=== PATIENT | female | born 1970 | race Caucasian/White ===

== ENCOUNTER 2016-10-07 19:45 | Emergency (ER) | payer MEDICAID ==
[2016-10-07 19:57] VITALS: BP 124/80
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
== END 2016-10-07 20:43 | disposition home or self-care (01) ==
LOC: LL.ED 19:45
DX: S62.660A Nondisplaced fracture of distal phalanx of right index finger, initial encounter for closed fracture (principal); J45.909 Unspecified asthma, uncomplicated; M19.90 Unspecified osteoarthritis, unspecified site; F41.9 Anxiety disorder, unspecified; F32.9 Major depressive disorder, single episode, unspecified; E66.9 Obesity, unspecified; Z90.89 Acquired absence of other organs; Z98.51 Tubal ligation status; Z79.82 Long term (current) use of aspirin; Z79.899 Other long term (current) drug therapy; W23.1XXA Caught, crushed, jammed, or pinched between stationary objects, initial encounter; Y92.59 Other trade areas as the place of occurrence of the external cause
CPT/HCPCS: 11740; 29130; 73140-F6; 99283

== ENCOUNTER 2018-07-09 14:09 | Observation (INO) | payer MEDICAID, OTHER ==
[2018-07-09] MEDS ORDERED: Metoprolol Tartrate 5 MG/5 ML SDV IVPUSH ONE (14:13)
[2018-07-09] MEDS ORDERED: Famotidine 20 MG/2 ML SDV IVPUSH ONE (14:13)
[2018-07-09] MEDS ORDERED: Ticagrelor 90 MG Tab PO ONE (14:13)
[2018-07-09] MEDS ORDERED: Aspirin 81 MG Tab.Chew CHEW ONE (14:13)
--- NOTE | 2018-07-09 14:13 | EDM.PDOC ---
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 Prilosec taken earlier today. Consider GI workup including repeat EGD, etc. once her cardiac status has been clarified. Attempt to obtain H. pylori stool antigen samples. (3) Hypertension SNOMED Code(s): 28387649 Code(s): I10 - ESSENTIAL (PRIMARY) HYPERTENSION Status: Chronic Priority : High Current Visit: Yes Onset Date: 10/31/15 Annotation/Comment:: Blood pressures and elevated on arrival with low-dose IV Lopressor given. Continue to observe closely during this hospitalization. Qualifiers: Hypertension type: essential hypertension Qualified Code(s): I10 - Essential (primary) hypertension (4) Mixed anxiety depressive disorder SNOMED Code(s): 687016808 Code(s): F41.8 - OTHER SPECIFIED ANXIETY DISORDERS Status: Chronic Priority: High Current Visit: Yes Annotation/Comment:: Stable by history (5) Hypothyroidism SNOMED Code(s): 12327489 Code(s): E03.9 - HYPOTHYROIDISM, UNSPECIFIED Status: Chronic Priority: Medium Current Visit: Yes Onset Date: 10/31/15 Annotation/Comment:: Currently under therapy. TSH normal today. Qualifiers: Hypothyroidism type: acquired Qualified Code(s): E03.9 - Hypothyroidism, unspecified (6) Asthma SNOMED Code(s): 405819139 Code(s): J45.909 - UNSPECIFIED ASTHMA, UNCOMPLICATED Status: Chronic Priority: Medium Current Visit: Yes Annotation/Comment:: Stable by history with no recent fever however recent nonspecific nonproductive cough as above. Observe for now. Consider PFTs depending on her clinical course. Qualifiers: Asthma severity: unspecified severity Asthma persistence: intermittent Asthma complication type: uncomplicated Qualified Code(s): J45.20 - Mild intermittent asthma, uncomplicated (7) Dyslipidemia SNOMED Code(s): 447797810 Code(s): E78.5 - HYPERLIPIDEMIA, UNSPECIFIED Status: Chronic Priority: Medium Current Visit: Yes Onset Date: 11/01/15 Annotation/Comment:: Known dyslipidemia. Lipid panel and glycosylated hemoglobin in the a.m. Weight loss in moderation advisable. (8) Anemia SNOMED Code(s): 848993327 Code(s): D64.9 - ANEMIA, UNSPECIFIED Status: Chronic Priority: Medium Current Visit: Yes Onset Date: 11/01/15 Annotation/Comment:: No anemia today with some microcytosis. Further GI workup on an outpatient basis as above. Further iron studies, etc. in the a.m. Qualifiers: Anemia type: unspecified type Qualified Code(s): D64.9 - Anemia, unspecified (9) Osteoarthritis SNOMED Code(s): 749518824 Code(s): M19.90 - UNSPECIFIED OSTEOARTHRITIS, UNSPECIFIED SITE Status: Chronic Priority: Medium Current Visit: Yes Annotation/Comment:: Stable by history Qualifiers: Osteoarthritis location: multiple joints Osteoarthritis type: primary Qualified Code(s): M15.0 - Primary generalized (osteo)arthritis - Problem List Review Problem List Initiated/Reviewed/Updated: Yes - My Orders Last 24 Hours: My Active Orders 07/09/18 14:13 Cardiac Monitoring [RC] . DIRECTED EKG Documentation Completion [RC] ASDIRECTED Oxygen Therapy, ED [RC] PRN Peripheral IV Care [RC] . DIRECTED Pulse Oximetry [RC] CONTINUOUS Up With Assistance [RC] PFP Vital Signs [RC] PFP Chest 1V Frontal [CR] Stat Sodium Chloride 0.9% [Saline Flush] 10 ml FLUSH ASDIRECTED PRN Obtain Past Medical Record [OM.PC] Urgent Peripheral IV Insertion Adult [OM.PC] Stat Resuscitation Status Stat 07/09/18 14:17 Nitroglycerin [Nitrostat] 0.4 mg SL ONETIME STA 07/09/18 Breakfast Nothing per Oral Now Diet [DIET] - Assessment/Plan Admission H&P: Please use this note as an admission H&P Last 24 Hours: My Active Orders 07/09/18 14:13 Cardiac Monitoring [RC] . DIRECTED EKG Documentation Completion [RC] ASDIRECTED Oxygen Therapy, ED [RC] PRN Peripheral IV Care [RC] . DIRECTED Pulse Oximetry [RC] CONTINUOUS Up With Assistance [RC] PFP Vital Signs [RC] PFP Chest 1V Frontal [CR] Stat Sodium Chloride 0.9% [Saline Flush] 10 ml FLUSH ASDIRECTED PRN Obtain Past Medical Record [OM.PC] Urgent Peripheral IV Insertion Adult [OM.PC] Stat Resuscitation Status Stat 07/09/18 14:17 Nitroglycerin [Nitrostat] 0.4 mg SL ONETIME STA 07/09/18 Breakfast Nothing per Oral Now Diet [DIET] Assessment:: As above Plan: As above. Extensive precautions were given to the patient, who is in agreement with the treatment plan. The patient's condition is stable enough for observation status and general supervision.
[2018-07-09] MEDS ORDERED: Nitroglycerin 0.4 MG Tab.SL SL STA (14:17)
[2018-07-09] MEDS: Sodium Chloride 0.9% 10 ML Syringe FLUSH PRN ×3 (14:29→22:31)
[2018-07-09] MEDS ORDERED: Doxepin 25 MG Cap PO PRN (16:29)
[2018-07-09] MEDS ORDERED: GI Cocktail Oral Solution 30 ML PO ONE (16:51)
[2018-07-09] MEDS ORDERED: Sodium Chloride 0.9% 10 ML Syringe FLUSH PRN (16:53)
[2018-07-09] MEDS ORDERED: Venlafaxine 75 MG Cap.ER PO SCH (20:00)
[2018-07-09] MEDS ORDERED: Diazepam 5 MG Tab PO SCH (20:00)
[2018-07-09] MEDS ORDERED: buPROPion 150 MG Tab.ER PO SCH (20:00)
[2018-07-09] MEDS ORDERED: NALTREXONE 50 MG PO SCH (20:00)
[2018-07-09] MEDS: cefTRIAXone 1 GM in Sodium Chloride 0.9% 100 ML IV SCH (21:45)
[2018-07-10] MEDS: Acetaminophen 325 MG Tab PO PRN ×2 (00:55→08:08)
[2018-07-10 07:29] VITALS: BP 138/81
[2018-07-10] MEDS ORDERED: Levothyroxine 50 MCG Tab PO SCH (07:30)
[2018-07-10 07:43] LABS: HEMOGLOBIN A1C 6.4 % (4.3-5.7)
[2018-07-10] MEDS ORDERED: BREXPIPRAZOLE 0.5 MG PO SCH (08:00)
[2018-07-10] MEDS ORDERED: Venlafaxine 75 MG Cap.ER PO SCH (08:00)
[2018-07-10] MEDS ORDERED: Aspirin 81 MG Tab.Chew PO SCH (08:00)
[2018-07-10] MEDS: cefTRIAXone 1 GM in Sodium Chloride 0.9% 100 ML IV SCH (08:00)
[2018-07-10] MEDS: Sodium Chloride 0.9% 10 ML Syringe FLUSH PRN (08:01)
--- NOTE | 2018-07-10 10:15 | PCM.DCSUM1 ---
Discharge Summary - Hospital Course HPI Initial Comments: See emergency room note/admission H&P Brief History: See emergency room note/admission H&P Diagnosis: Stroke: No Modified Callahan Scale: No Symptoms at All Modified Callahan Scale Score: 0 - Discharge Data Discharge Date: 07/10/18 Discharge Disposition: Home, Self-Care 01 Condition: Good - Discharge Diagnosis/Problem(s) (1) Chest pain SNOMED Code(s): 73436124 ICD Code: R07.9 - CHEST PAIN, UNSPECIFIED Status: Acute Priority: High Current Visit: Yes Onset Date: 07/07/18 Problem Details: Negative workup for acute MS with patient still having some nonspecific chest wall pressure type discomfort. Various therapeutic options were discussed with the patient with Cardiolite stress test with me in this facility next week. Results are to be provided to her regular provider, Kerrie Goodman PA-C, at [facility] in [place]. Activity restrictions, etc. discussed. She apparently does not need a work excuse. Chest pain protocol initiated in the emergency room. Further cardiology consultation depending on her clinical course and results of her Cardiolite stress test. Qualifiers: Chest pain type: unspecified Qualified Code(s): R07.9 - Chest pain, unspecified (2) Peptic reflux disease SNOMED Code(s): 800126058 ICD Code: K21.9 - GASTRO-ESOPHAGEAL REFLUX DISEASE WITHOUT ESOPHAGITIS Status: Chronic Priority: Medium Current Visit: Yes Problem Details: High- dose IV Pepcid given in the emergency room as GI prophylaxis. Her heartburn has been under moderate control during the last week as per emergency room note with additional specimens for Hemoccult 3 and for H. pylori antigen to be collected on an outpatient basis. No BM during this hospitalization. Her Prilosec is already being taken at 40 mg by mouth daily consideration of additional Pepcid and/or Tums depending on her clinical course. Consider GI workup, including repeat EGD, etc. once her cardiac status has been clarified. (3) Hypertension SNOMED Code(s): 07603960 ICD Code: I10 - ESSENTIAL (PRIMARY) HYPERTENSION Status: Chronic Priority : High Current Visit: Yes Onset Date: 10/31/15 Problem Details: Blood pressures somewhat elevated on arrival with low-dose IV Lopressor given. Continue to observe closely by her regular provider with continuation of beta sawyer therapy for now. Note that patient failed to mention this therapy on admission. Qualifiers: Hypertension type: essential hypertension Qualified Code(s): I10 - Essential (primary) hypertension (4) Mixed anxiety depressive disorder SNOMED Code(s): 981726858 ICD Code: F41.8 - OTHER SPECIFIED ANXIETY DISORDERS Status: Chronic Priority: High Current Visit: Yes Problem Details: Stable by history with multiple current medications. Mildly suboptimal control based on clinical exam during this hospitalization. Continue to observe closely by her regular provider. (5) Hypothyroidism SNOMED Code(s): 38953659 ICD Code: E03.9 - HYPOTHYROIDISM, UNSPECIFIED Status: Chronic Priority: Medium Current Visit: Yes Onset Date: 10/31/15 Problem Details: Currently under therapy. TSH normal on admission. Qualifiers: Hypothyroidism type: acquired Qualified Code(s): E03.9 - Hypothyroidism, unspecified (6) Asthma SNOMED Code(s): 115875371 ICD Code: J45.909 - UNSPECIFIED ASTHMA, UNCOMPLICATED Status: Chronic Priority: Medium Current Visit: Yes Problem Details: Stable by history with no recent fever however recent nonspecific nonproductive cough as above. Observe for now. Consider PFTs depending on her clinical course. Qualifiers: Asthma severity: unspecified severity Asthma persistence: intermittent Asthma complication type: uncomplicated Qualified Code(s): J45.20 - Mild intermittent asthma, uncomplicated (7) Dyslipidemia SNOMED Code(s): 312820807 ICD Code: E78.5 - HYPERLIPIDEMIA, UNSPECIFIED Status: Chronic Priority: Medium Current Visit: Yes Onset Date: 11/01/15 Problem Details: Known dyslipidemia. Lipid panel and glycosylated hemoglobin conducted this morning with persistent dyslipidemia and mildly elevated glycosylated hemoglobin as below. No true diabetes. Weight loss in moderation advisable with dietary information provided at discharge. Consider statin therapy depending on her clinical course, weight loss success, etc. with repeat lipid panel and glycosylated globin recommended in 3 months. (8) Anemia SNOMED Code(s): 984990060 ICD Code: D64.9 - ANEMIA, UNSPECIFIED Status: Chronic Priority: Medium Current Visit: Yes Onset Date: 11/01/15 Problem Details: Progressive anemia during this hospitalization as above. Possible rehydration effect.with some microcytosis. Note newly diagnosed iron deficiency this morning with initiation of iron sulfate therapy and repeat iron studies in one month. Vitamin B 12 and folic acid levels were normal. Further GI workup on an outpatient basis as above. Qualifiers: Anemia type: iron deficiency Iron deficiency anemia type: unspecified iron deficiency Qualified Code(s): D50.9 - Iron deficiency anemia, unspecified (9) Osteoarthritis SNOMED Code(s): 210612936 ICD Code: M19.90 - UNSPECIFIED OSTEOARTHRITIS, UNSPECIFIED SITE Status: Chronic Priority: Medium Current Visit: Yes Problem Details: Stable by history Qualifiers: Osteoarthritis location: multiple joints Osteoarthritis type: primary Qualified Code(s): M15.0 - Primary generalized (osteo)arthritis (10) Hypocalcemia SNOMED Code(s): 7680325 ICD Code: E83.51 - HYPOCALCEMIA Status: Acute Priority: Medium Current Visit: Yes Onset Date: 07/10/18 Problem Details: Observe for now. Calcium level normal on admission. Consider additional OTC Tums depending on her clinical course. (11) Hypoalbuminemia SNOMED Code(s): 499679704 ICD Code: E88.09 - OTH DISORDERS OF PLASMA-PROTEIN METABOLISM, NEC Status: Acute Priority: Medium Current Visit: Yes Onset Date: 07/10/18 Problem Details: Normal on admission. Consider high-protein Glucerna supplements depending on her clinical course. (12) UTI (urinary tract infection) SNOMED Code(s): 83340571 ICD Code: N39.0 - URINARY TRACT INFECTION, SITE NOT SPECIFIED Status: Acute Priority: High Current Visit: Yes Onset Date: 07/09/18 Problem Details: IV Rocephin therapy started yesterday with patient to be discharged with Bactrim DS, which should also be beneficial for her nonspecific lymphadenopathy. Close follow-up by regular provider as per discharge instructions. Qualifiers: Urinary tract infection type: acute cystitis Hematuria presence: without hematuria Qualified Code(s): N30.00 - Acute cystitis without hematuria - Patient Summary/Data Operative Procedure(s) Performed: None Complications: None Consults: None Labs Pending at D/C: Urine culture and sensitivity Recommended Follow-up Testing/Procedures: As per discharge instructions Planned Operative Procedure(s) after DC: As per discharge instructions Hospital Course: The patient was placed in observation status on telemetry with negative workup for acute MS as above. Persistent nonspecific left-sided lymph node discomfort without true lymphadenopathy by clinical exam. In addition, nonspecific chest wall pain treated with Tylenol during this hospitalization. No true anginal complaints, etc. Cardiac workup, etc. as above. In addition, note some mild progressive anemia during the hospitalization with possible future workup as above. - Patient Instructions Diet: Heart Healthy Diet Activity: No Strenuous Activities (50% maximum exercise restriction until otherwise directed by regular provider) Driving: May Drive Today Showering/Bathing: May Shower Notify Provider of: Fever, Increased Pain, Nausea and/or Vomiting Other/Special Instructions: 1. Follow-up with your regular provider in 2 weeks for reevaluation and recommended repeat CBC, comprehensive metabolic panel, UA, and urine for culture and sensitivity. 2. Discuss Cardiolite test results at that time with further cardiology workup/referral and/or additional workup for your anemia including possible EGD, colonoscopy, etc. as discussed. 3. Cardiolite stress test to be conducted with me in this facility on 07/17 with this hospital to inform you at a later time next week with specific instructions , etc. 4. Recommend repeat CBC, TIBC panel, and ferritin level in one month. 5. Weight loss in moderation as discussed with dietary information provided to you by discharge. 6. Recommend repeat glycosylated hemoglobin and fasting lipid panel in 3 months. 7. Stool specimens for Hemoccults 3 and H. pylori stool antigen to be provided to this facility RENUKA as discussed. 8. Immediately after this visit verify that your cellular telephone's voicemail has been activated and is empty. Also verify that your home telephone's answering machine is operating properly and has space to receive messages. Note that it is sometimes necessary for us to be able to contact you at a later date to discuss your medical care. 9. Please remember that we are ALWAYS here for you and want to answer any questions you may have. Feel free to call the hospital any time and we call you back RENUKA. 10. Further workup of your left- sided lymph node pain at follow-up depending on her symptoms at that time - Discharge Plan *PRESCRIPTION DRUG MONITORING PROGRAM REVIEWED*: Not Applicable *COPY OF PRESCRIPTION DRUG MONITORING REPORT IN PATIENT NARCISO: Not Applicable Prescriptions/Med Rec: Ferrous Sulfate 325 mg PO QPM #30 tablet Sulfamethoxazole/Trimethoprim [Bactrim Ds Tablet] 1 each PO BIDMEALS #20 tablet Home Medications: Home Meds Albuterol Sulfate [Proair Hfa] 2 puff INH Q4HR PRN 10/31/15 [History] Doxepin [SINEquan] 75 mg PO BEDTIME PRN 10/31/15 [History] Fluticasone Propionate [Flonase] 2 spray INH DAILY 10/31/15 [History] Fluticasone/Vilanterol [Breo Ellipta 100-25 MCG Inhalation Kit] 1 puff INH DAILY 10/31/15 [History] Omeprazole 40 mg PO DAILY 10/31/15 [History] Venlafaxine [Effexor XR] 225 mg PO DAILY 10/31/15 [History] Acetaminophen [Tylenol] 650 mg PO Q4H PRN #100 tablet 11/01/15 [Rx] Aspirin 81 mg PO BRK #100 tab.chew 11/01/15 [Rx] Levothyroxine [Synthroid] 50 mcg PO ACBREAKFAST #60 tablet 11/01/15 [Rx] Naltrexone 50 mg PO BEDTIME 10/07/16 [History] buPROPion [Wellbutrin XL] 150 mg PO BEDTIME 10/07/16 [History] Brexpiprazole [Rexulti] 0.5 mg PO DAILY 07/09/18 [History] Diazepam [Valium] 5 mg PO BEDTIME 07/09/18 [History] Acetaminophen [Tylenol] 650 mg PO Q4H PRN tablet 07/10/18 [Rx] Ferrous Sulfate 325 mg PO QPM #30 tablet 07/10/18 [Rx] Metoprolol Tartrate 25 mg PO BID 07/10/18 [History] Sulfamethoxazole/Trimethoprim [Bactrim Ds Tablet] 1 each PO BIDMEALS #20 tablet 07/10/18 [Rx] Oxygen Therapy Mode: Room Air Patient Handouts: Fat and Cholesterol Restricted Eating Plan, Ceftriaxone injection, Heart-Healthy Eating Plan, [id number], Urinary Tract Infection, Adult, [id number], Nonspecific Chest Pain, [id number] Forms: ED Department Discharge Referrals: Kerrie Bourgeois PA-C [Primary Care Provider] - - Discharge Summary/Plan Comment DC Time >30 min.: Yes Discharge Summary/Plan Comment: As above. Extensive precautions were given to the patient, who is in agreement with the treatment plan. See Patient Instructions for further treatment and plan. - General Info Date of Service: 07/10/18 Admission Dx/Problem (Free Text: Chest pain Functional Status: Reports: Pain Controlled, Tolerating Diet, Ambulating, Urinating. Denies: New Symptoms, Incentive Spirometry Numeric/FACES Score: 4 (Nonspecific ascites lymphadenopathy and chest wall pain as above) - Review of Systems General: Reports: No Symptoms. Denies: Fever, Weakness, Fatigue, Malaise, Chills, Night Sweats, Appetite (Good) HEENT: Denies: Ear Pain, Eye Pain, Headaches, Post Nasal Drip, Sinus Congestion , Sore Throat, Rhinitis, Visual Changes Pulmonary: Reports: No Symptoms. Denies: Shortness of Breath, Pleuritic Chest Pain, Cough, Sputum, Wheezing Cardiovascular: Reports: Chest Pain (Nonspecific chest wall), Edema (Stable dependent). Denies: Palpitations, Dyspnea on Exertion, Lightheadedness Gastrointestinal: Reports: No Symptoms, Other (No bowel movement during this hospitalization). Denies: Abdominal Pain, Constipation, Decreased Appetite, Diarrhea, Difficulty Swallowing, Flatus, Hematochezia, Melena, Nausea, Vomiting Genitourinary: Reports: No Symptoms, Other (Note positive UA). Denies: Dysuria , Frequency, Burning, Pain, Urgency, Incontinence, Hematuria, Retention, Flank Pain Musculoskeletal: Reports: No Symptoms. Denies: Neck Pain, Shoulder Pain, Arm Pain, Back Pain, Leg Pain, Joint Swelling Skin: Reports: No Symptoms. Denies: Diaphoresis, Bruising Neurological: Reports: No Symptoms. Denies: Confusion, Dizziness, Numbness, Paresthesia, Tingling, Weakness Psychiatric: Reports: Depression, Anxiety. Denies: Agitation, Hallucinations, Suicidal Ideation, Homicidal Ideation - Patient Data Vitals - Most Recent: Last Vital Signs Temp 36.2 C 07/10/18 07:28 Pulse 72 07/10/18 07:28 Resp 16 07/10/18 07:28 BP 138/81 07/10/18 07:28 Pulse Ox 95 07/10/18 07:28 Vital Signs - 24 hr 07/09/18 07/09/18 07/09/18 14:12 14:24 14:25 Temperature [ 36.9 C Temporal] Pulse, 100 Peripheral Pulse, 99 Peripheral [ Pulse Oximetry] Respiratory 23 H Rate Blood Pressure 156/95 H 156/95 H Blood Pressure [Left Upper Arm ] Blood Pressure 164/96 H [Right Upper Arm] O2 Sat by Pulse 98 Oximetry 07/09/18 07/09/18 07/09/18 14:30 14:45 15:00 Temperature [ Temporal] Pulse, Peripheral Pulse, 101 H 80 81 Peripheral [ Pulse Oximetry] Respiratory 20 22 H 24 H Rate Blood Pressure Blood Pressure [Left Upper Arm ] Blood Pressure 156/95 H 134/93 H 134/93 H [Right Upper Arm] O2 Sat by Pulse 96 95 95 Oximetry 07/09/18 07/09/18 07/09/18 15:20 15:50 16:20 Temperature [ 36.9 C Temporal] Pulse, Peripheral Pulse, 74 70 74 Peripheral [ Pulse Oximetry] Respiratory 22 H 21 H 25 H Rate Blood Pressure Blood Pressure [Left Upper Arm ] Blood Pressure 125/76 148/72 H 133/97 H [Right Upper Arm] O2 Sat by Pulse 96 96 94 L Oximetry 07/09/18 07/09/18 07/09/18 16:53 18:53 20:00 Temperature [ 36.4 C 36.4 C Temporal] Pulse, Peripheral Pulse, 65 68 Peripheral [ Pulse Oximetry] Respiratory 16 16 Rate Blood Pressure Blood Pressure 145/95 H 129/85 [Left Upper Arm ] Blood Pressure [Right Upper Arm] O2 Sat by Pulse 94 L 95 94 L Oximetry 07/10/18 07/10/18 07/10/18 00:00 04:00 07:28 Temperature [ 36.8 C 36.2 C 36.2 C Temporal] Pulse, Peripheral Pulse, 82 67 72 Peripheral [ Pulse Oximetry] Respiratory 16 16 16 Rate Blood Pressure Blood Pressure 135/90 139/74 [Left Upper Arm ] Blood Pressure 138/81 [Right Upper Arm] O2 Sat by Pulse 95 96 95 Oximetry Weight - Most Recent: 119.204 kg I&O - Last 24 hours: Intake & Output 07/09/18 07/10/18 07/10/18 22:59 06:59 14:59 Intake Total 540 Output Total 700 Balance -160 Imaging Impressions - Last 24 hrs: 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 Chest x-ray, portable, on 07/09/18 shows moderately elevated right hemidiaphragm with no cardiomegaly, CHF, pulmonary infiltrates, pneumothorax, etc. Lab Results - Last 24 hrs: Laboratory Results - last 24 hr 07/09/18 07/09/18 07/09/18 Range/Units 14:20 14:20 14:20 WBC 11.6 H (4.0-10.2) K/uL RBC 4.66 (3.77-5.09) M/uL Hgb 11.3 L (11.7-15.5) g/dL Hct 36.3 (34.0-46.0) % MCV 77.9 L (84.0-98.0) fL MCH 24.2 L (28.2-33.3) pg MCHC 31.1 L (31.7-36.0) g/dL RDW 17.0 H (11.2-14.1) % Plt Count 438 H (150-350) K/uL Neut % (Auto) 67.4 (45.0-80.0) % Lymph % (Auto) 24.1 (10.0-50.0) % [place] % (Auto) 6.5 (2.0-14.0) % Eos % (Auto) 1.6 (0.0-5.0) % Baso % (Auto) 0.4 (0.0-2.0) % Neut # (Auto) 7.82 H (1.40-7.00) K/uL Lymph # (Auto) 2.80 (0.50-3.50) K/uL [place] # (Auto) 0.75 (0.00-1.00) K/uL Eos # (Auto) 0.18 (0.00-0.50) K/uL Baso # (Auto) 0.05 (0.00-0.20) K/uL PT 10.7 (9.5-12.0) SEC INR 1.0 APTT 28.6 (21.0-31.3) SEC D-Dimer, Quantitative 109 (0-400) ng/mL Sodium (136-145) mmol/L Potassium (3.5-5.1) mmol/L Chloride (98-107) mmol/L Carbon Dioxide (21.0-32.0) mmol/L BUN (7-18) mg/dL Creatinine (0.51-1.17) mg/dL Est Cr Clr Drug Dosing mL/min Estimated GFR (MDRD) mL/min Glucose (74-106) mg/dL Hemoglobin A1c (4.3-5.7) % Lactic Acid (0.4-2.0) mmol/L Uric Acid (2.6-7.2) mg/dL Calcium (8.5-10.1) mg/dL Magnesium (1.8-2.4) mg/dL Iron (50-175) ug/dL TIBC (250-450) ug/dL % Saturation Ferritin (8-388) ng/mL Total Bilirubin (0.2-1.0) mg/dL AST (15-37) U/L ALT (12-78) U/L Alkaline Phosphatase (46-116) IU/L Creatine Kinase (26-308) U/L Creatine Kinase Index (0.0-2.5) % CK-MB (CK-2) (0.00-3.60) ng/mL Troponin I (0.000-0.056) ng/mL NT-Pro-B Natriuret Pep (0-125) pg/mL Total Protein (6.4-8.2) g/dL Albumin (3.4-5.0) g/dL Triglycerides (30-150) mg/dL Cholesterol (100-200) mg/dL LDL Cholesterol, Calc (0-100) mg/dL HDL Cholesterol (40-60) mg/dL Vitamin B12 (193-986) pg/mL TSH, Ultra Sensitive (0.358-3.740) mIU/mL HCG, Qual (NEGATIVE) Specimen Type Urine Color Urine Appearance Urine pH (5.0-9.0) Ur Specific [place] (1.005-1.030) Urine Protein (NEGATIVE) mg/dL Urine Glucose (UA) (NEGATIVE) mg/dL Urine Ketones (NEGATIVE) mg/dL Urine Occult Blood (NEGATIVE) Urine Nitrite (NEGATIVE) Urine Bilirubin (NEGATIVE) Urine Urobilinogen (0.2-1.0) E.U./dL Ur Leukocyte Esterase (NEGATIVE) Urine RBC /HPF Urine WBC /HPF Ur Epithelial Cells /LPF Urine Bacteria (NONE TO FEW) /HPF 07/09/18 07/09/18 07/09/18 Range/Units 14:20 14:20 14:20 WBC (4.0-10.2) K/uL RBC (3.77-5.09) M/uL Hgb (11.7-15.5) g/dL Hct (34.0-46.0) % MCV (84.0-98.0) fL MCH (28.2-33.3) pg MCHC (31.7-36.0) g/dL RDW (11.2-14.1) % Plt Count (150-350) K/uL Neut % (Auto) (45.0-80.0) % Lymph % (Auto) (10.0-50.0) % [place] % (Auto) (2.0-14.0) % Eos % (Auto) (0.0-5.0) % Baso % (Auto) (0.0-2.0) % Neut # (Auto) (1.40-7.00) K/uL Lymph # (Auto) (0.50-3.50) K/uL [place] # (Auto) (0.00-1.00) K/uL Eos # (Auto) (0.00-0.50) K/uL Baso # (Auto) (0.00-0.20) K/uL PT (9.5-12.0) SEC INR APTT (21.0-31.3) SEC D-Dimer, Quantitative (0-400) ng/mL Sodium 138 (136-145) mmol/L Potassium 3.8 (3.5-5.1) mmol/L Chloride 101 (98-107) mmol/L Carbon Dioxide 24.6 (21.0-32.0) mmol/L BUN 12 (7-18) mg/dL Creatinine 1.01 (0.51-1.17) mg/dL Est Cr Clr Drug Dosing 62.63 mL/min Estimated GFR (MDRD) 59 mL/min Glucose 144 H (74-106) mg/dL Hemoglobin A1c (4.3-5.7) % Lactic Acid 1.7 (0.4-2.0) mmol/L Uric Acid 6.3 (2.6-7.2) mg/dL Calcium 9.2 (8.5-10.1) mg/dL Magnesium 1.9 (1.8-2.4) mg/dL Iron (50-175) ug/dL TIBC (250-450) ug/dL % Saturation Ferritin (8-388) ng/mL Total Bilirubin 0.4 (0.2-1.0) mg/dL AST 45 H (15-37) U/L ALT 64 (12-78) U/L Alkaline Phosphatase 102 (46-116) IU/L Creatine Kinase 79 (26-308) U/L Creatine Kinase Index 0.6 (0.0-2.5) % CK-MB (CK-2) 0.50 (0.00-3.60) ng/mL Troponin I 0.000 (0.000-0.056) ng/mL NT-Pro-B Natriuret Pep 17 (0-125) pg/mL Total Protein 8.3 H (6.4-8.2) g/dL Albumin 3.5 (3.4-5.0) g/dL Triglycerides (30-150) mg/dL Cholesterol (100-200) mg/dL LDL Cholesterol, Calc (0-100) mg/dL HDL Cholesterol (40-60) mg/dL Vitamin B12 (193-986) pg/mL TSH, Ultra Sensitive 3.173 (0.358-3.740) mIU/mL HCG, Qual Negative (NEGATIVE) Specimen Type Urine Color Urine Appearance Urine pH (5.0-9.0) Ur Specific [place] (1.005-1.030) Urine Protein (NEGATIVE) mg/dL Urine Glucose (UA) (NEGATIVE) mg/dL Urine Ketones (NEGATIVE) mg/dL Urine Occult Blood (NEGATIVE) Urine Nitrite (NEGATIVE) Urine Bilirubin (NEGATIVE) Urine Urobilinogen (0.2-1.0) E.U./dL Ur Leukocyte Esterase (NEGATIVE) Urine RBC /HPF Urine WBC /HPF Ur Epithelial Cells /LPF Urine Bacteria (NONE TO FEW) /HPF 07/09/18 07/09/18 07/10/18 Range/Units 16:57 20:36 07:05 WBC (4.0-10.2) K/uL RBC (3.77-5.09) M/uL Hgb (11.7-15.5) g/dL Hct (34.0-46.0) % MCV (84.0-98.0) fL MCH (28.2-33.3) pg MCHC (31.7-36.0) g/dL RDW (11.2-14.1) % Plt Count (150-350) K/uL Neut % (Auto) (45.0-80.0) % Lymph % (Auto) (10.0-50.0) % [place] % (Auto) (2.0-14.0) % Eos % (Auto) (0.0-5.0) % Baso % (Auto) (0.0-2.0) % Neut # (Auto) (1.40-7.00) K/uL Lymph # (Auto) (0.50-3.50) K/uL [place] # (Auto) (0.00-1.00) K/uL Eos # (Auto) (0.00-0.50) K/uL Baso # (Auto) (0.00-0.20) K/uL PT (9.5-12.0) SEC INR APTT (21.0-31.3) SEC D-Dimer, Quantitative (0-400) ng/mL Sodium (136-145) mmol/L Potassium (3.5-5.1) mmol/L Chloride (98-107) mmol/L Carbon Dioxide (21.0-32.0) mmol/L BUN (7-18) mg/dL Creatinine (0.51-1.17) mg/dL Est Cr Clr Drug Dosing mL/min Estimated GFR (MDRD) mL/min Glucose (74-106) mg/dL Hemoglobin A1c (4.3-5.7) % Lactic Acid (0.4-2.0) mmol/L Uric Acid (2.6-7.2) mg/dL Calcium (8.5-10.1) mg/dL Magnesium (1.8-2.4) mg/dL Iron 21 L (50-175) ug/dL TIBC 384 (250-450) ug/dL % Saturation [id number] Ferritin 20 (8-388) ng/mL Total Bilirubin (0.2-1.0) mg/dL AST (15-37) U/L ALT (12-78) U/L Alkaline Phosphatase (46-116) IU/L Creatine Kinase 75 (26-308) U/L Creatine Kinase Index 0.8 (0.0-2.5) % CK-MB (CK-2) 0.60 (0.00-3.60) ng/mL Troponin I 0.000 (0.000-0.056) ng/mL NT-Pro-B Natriuret Pep (0-125) pg/mL Total Protein (6.4-8.2) g/dL Albumin (3.4-5.0) g/dL Triglycerides (30-150) mg/dL Cholesterol (100-200) mg/dL LDL Cholesterol, Calc (0-100) mg/dL HDL Cholesterol (40-60) mg/dL Vitamin B12 (193-986) pg/mL TSH, Ultra Sensitive (0.358-3.740) mIU/mL HCG, Qual (NEGATIVE) Specimen Type Urincc Urine Color Yellow Urine Appearance Slightly cloudy Urine pH 5.5 (5.0-9.0) Ur Specific [place] >= 1.030 (1.005-1.030) Urine Protein Negative (NEGATIVE) mg/dL Urine Glucose (UA) Negative (NEGATIVE) mg/dL Urine Ketones Trace H (NEGATIVE) mg/dL Urine Occult Blood Trace-intact H (NEGATIVE) Urine Nitrite Positive H (NEGATIVE) Urine Bilirubin Negative (NEGATIVE) Urine Urobilinogen 0.2 (0.2-1.0) E.U./dL Ur Leukocyte Esterase Small H (NEGATIVE) Urine RBC 0-5 /HPF Urine WBC 20-30 H /HPF Ur Epithelial Cells Moderate H /LPF Urine Bacteria Moderate H (NONE TO FEW) /HPF 07/10/18 07/10/18 07/10/18 Range/Units 07:05 07:05 07:05 WBC 7.9 (4.0-10.2) K/uL RBC 4.25 (3.77-5.09) M/uL Hgb 10.3 L (11.7-15.5) g/dL Hct 33.3 L (34.0-46.0) % MCV 78.4 L (84.0-98.0) fL MCH 24.2 L (28.2-33.3) pg MCHC 30.9 L (31.7-36.0) g/dL RDW 16.7 H (11.2-14.1) % Plt Count 394 H (150-350) K/uL Neut % (Auto) 61.8 (45.0-80.0) % Lymph % (Auto) 29.1 (10.0-50.0) % [place] % (Auto) 6.3 (2.0-14.0) % Eos % (Auto) 2.0 (0.0-5.0) % Baso % (Auto) 0.8 (0.0-2.0) % Neut # (Auto) 4.88 (1.40-7.00) K/uL Lymph # (Auto) 2.30 (0.50-3.50) K/uL [place] # (Auto) 0.50 (0.00-1.00) K/uL Eos # (Auto) 0.16 (0.00-0.50) K/uL Baso # (Auto) 0.06 (0.00-0.20) K/uL PT (9.5-12.0) SEC INR APTT (21.0-31.3) SEC D-Dimer, Quantitative (0-400) ng/mL Sodium 143 (136-145) mmol/L Potassium 3.7 (3.5-5.1) mmol/L Chloride 106 (98-107) mmol/L Carbon Dioxide 27.3 (21.0-32.0) mmol/L BUN 10 (7-18) mg/dL Creatinine 1.00 (0.51-1.17) mg/dL Est Cr Clr Drug Dosing 63.25 mL/min Estimated GFR (MDRD) 60 mL/min Glucose 98 (74-106) mg/dL Hemoglobin A1c 6.4 H (4.3-5.7) % Lactic Acid (0.4-2.0) mmol/L Uric Acid (2.6-7.2) mg/dL Calcium 8.4 L (8.5-10.1) mg/dL Magnesium (1.8-2.4) mg/dL Iron (50-175) ug/dL TIBC (250-450) ug/dL % Saturation Ferritin (8-388) ng/mL Total Bilirubin 0.3 (0.2-1.0) mg/dL AST 36 (15-37) U/L ALT 52 (12-78) U/L Alkaline Phosphatase 90 (46-116) IU/L Creatine Kinase 76 (26-308) U/L Creatine Kinase Index 0.9 (0.0-2.5) % CK-MB (CK-2) 0.70 (0.00-3.60) ng/mL Troponin I 0.000 (0.000-0.056) ng/mL NT-Pro-B Natriuret Pep (0-125) pg/mL Total Protein 7.3 (6.4-8.2) g/dL Albumin 3.0 L (3.4-5.0) g/dL Triglycerides 83 (30-150) mg/dL Cholesterol 206 H (100-200) mg/dL LDL Cholesterol, Calc 158 H (0-100) mg/dL HDL Cholesterol 31 L (40-60) mg/dL Vitamin B12 514 (193-986) pg/mL TSH, Ultra Sensitive (0.358-3.740) mIU/mL HCG, Qual (NEGATIVE) Specimen Type Urine Color Urine Appearance Urine pH (5.0-9.0) Ur Specific [place] (1.005-1.030) Urine Protein (NEGATIVE) mg/dL Urine Glucose (UA) (NEGATIVE) mg/dL Urine Ketones (NEGATIVE) mg/dL Urine Occult Blood (NEGATIVE) Urine Nitrite (NEGATIVE) Urine Bilirubin (NEGATIVE) Urine Urobilinogen (0.2-1.0) E.U./dL Ur Leukocyte Esterase (NEGATIVE) Urine RBC /HPF Urine WBC /HPF Ur Epithelial Cells /LPF Urine Bacteria (NONE TO FEW) /HPF Laboratory Tests 07/09/18 07/09/18 07/09/18 Range/Units 14:20 14:20 14:20 WBC 11.6 H (4.0-10.2) K/uL RBC 4.66 (3.77-5.09) M/uL Hgb 11.3 L (11.7-15.5) g/dL Hct 36.3 (34.0-46.0) % MCV 77.9 L (84.0-98.0) fL MCH 24.2 L (28.2-33.3) pg MCHC 31.1 L (31.7-36.0) g/dL RDW 17.0 H (11.2-14.1) % Plt Count 438 H (150-350) K/uL Neut % (Auto) 67.4 (45.0-80.0) % Lymph % (Auto) 24.1 (10.0-50.0) % [place] % (Auto) 6.5 (2.0-14.0) % Eos % (Auto) 1.6 (0.0-5.0) % Baso % (Auto) 0.4 (0.0-2.0) % Neut # (Auto) 7.82 H (1.40-7.00) K/uL Lymph # (Auto) 2.80 (0.50-3.50) K/uL [place] # (Auto) 0.75 (0.00-1.00) K/uL Eos # (Auto) 0.18 (0.00-0.50) K/uL Baso # (Auto) 0.05 (0.00-0.20) K/uL PT 10.7 (9.5-12.0) SEC INR 1.0 APTT 28.6 (21.0-31.3) SEC D-Dimer, Quantitative 109 (0-400) ng/mL Sodium (136-145) mmol/L Potassium (3.5-5.1) mmol/L Chloride (98-107) mmol/L Carbon Dioxide (21.0-32.0) mmol/L BUN (7-18) mg/dL Creatinine (0.51-1.17) mg/dL Est Cr Clr Drug Dosing mL/min Estimated GFR (MDRD) mL/min Glucose (74-106) mg/dL Hemoglobin A1c (4.3-5.7) % Lactic Acid (0.4-2.0) mmol/L Uric Acid (2.6-7.2) mg/dL Calcium (8.5-10.1) mg/dL Magnesium (1.8-2.4) mg/dL Iron (50-175) ug/dL TIBC (250-450) ug/dL % Saturation Ferritin (8-388) ng/mL Total Bilirubin (0.2-1.0) mg/dL AST (15-37) U/L ALT (12-78) U/L Alkaline Phosphatase (46-116) IU/L Creatine Kinase (26-308) U/L Creatine Kinase Index (0.0-2.5) % CK-MB (CK-2) (0.00-3.60) ng/mL Troponin I (0.000-0.056) ng/mL NT-Pro-B Natriuret Pep (0-125) pg/mL Total Protein (6.4-8.2) g/dL Albumin (3.4-5.0) g/dL Triglycerides (30-150) mg/dL Cholesterol (100-200) mg/dL LDL Cholesterol, Calc (0-100) mg/dL HDL Cholesterol (40-60) mg/dL Vitamin B12 (193-986) pg/mL Folate (8.6-58.9) ng/mL TSH, Ultra Sensitive (0.358-3.740) mIU/mL HCG, Qual (NEGATIVE) Specimen Type Urine Color Urine Appearance Urine pH (5.0-9.0) Ur Specific [place] (1.005-1.030) Urine Protein (NEGATIVE) mg/dL Urine Glucose (UA) (NEGATIVE) mg/dL Urine Ketones (NEGATIVE) mg/dL Urine Occult Blood (NEGATIVE) Urine Nitrite (NEGATIVE) Urine Bilirubin (NEGATIVE) Urine Urobilinogen (0.2-1.0) E.U./dL Ur Leukocyte Esterase (NEGATIVE) Urine RBC /HPF Urine WBC /HPF Ur Epithelial Cells /LPF Urine Bacteria (NONE TO FEW) /HPF 07/09/18 07/09/18 07/09/18 Range/Units 14:20 14:20 14:20 WBC (4.0-10.2) K/uL RBC (3.77-5.09) M/uL Hgb (11.7-15.5) g/dL Hct (34.0-46.0) % MCV (84.0-98.0) fL MCH (28.2-33.3) pg MCHC (31.7-36.0) g/dL RDW (11.2-14.1) % Plt Count (150-350) K/uL Neut % (Auto) (45.0-80.0) % Lymph % (Auto) (10.0-50.0) % [place] % (Auto) (2.0-14.0) % Eos % (Auto) (0.0-5.0) % Baso % (Auto) (0.0-2.0) % Neut # (Auto) (1.40-7.00) K/uL Lymph # (Auto) (0.50-3.50) K/uL [place] # (Auto) (0.00-1.00) K/uL Eos # (Auto) (0.00-0.50) K/uL Baso # (Auto) (0.00-0.20) K/uL PT (9.5-12.0) SEC INR APTT (21.0-31.3) SEC D-Dimer, Quantitative (0-400) ng/mL Sodium 138 (136-145) mmol/L Potassium 3.8 (3.5-5.1) mmol/L Chloride 101 (98-107) mmol/L Carbon Dioxide 24.6 (21.0-32.0) mmol/L BUN 12 (7-18) mg/dL Creatinine 1.01 (0.51-1.17) mg/dL Est Cr Clr Drug Dosing 62.63 mL/min Estimated GFR (MDRD) 59 mL/min Glucose 144 H (74-106) mg/dL Hemoglobin A1c (4.3-5.7) % Lactic Acid 1.7 (0.4-2.0) mmol/L Uric Acid 6.3 (2.6-7.2) mg/dL Calcium 9.2 (8.5-10.1) mg/dL Magnesium 1.9 (1.8-2.4) mg/dL Iron (50-175) ug/dL TIBC (250-450) ug/dL % Saturation Ferritin (8-388) ng/mL Total Bilirubin 0.4 (0.2-1.0) mg/dL AST 45 H (15-37) U/L ALT 64 (12-78) U/L Alkaline Phosphatase 102 (46-116) IU/L Creatine Kinase 79 (26-308) U/L Creatine Kinase Index 0.6 (0.0-2.5) % CK-MB (CK-2) 0.50 (0.00-3.60) ng/mL Troponin I 0.000 (0.000-0.056) ng/mL NT-Pro-B Natriuret Pep 17 (0-125) pg/mL Total Protein 8.3 H (6.4-8.2) g/dL Albumin 3.5 (3.4-5.0) g/dL Triglycerides (30-150) mg/dL Cholesterol (100-200) mg/dL LDL Cholesterol, Calc (0-100) mg/dL HDL Cholesterol (40-60) mg/dL Vitamin B12 (193-986) pg/mL Folate (8.6-58.9) ng/mL TSH, Ultra Sensitive 3.173 (0.358-3.740) mIU/mL HCG, Qual Negative (NEGATIVE) Specimen Type Urine Color Urine Appearance Urine pH (5.0-9.0) Ur Specific [place] (1.005-1.030) Urine Protein (NEGATIVE) mg/dL Urine Glucose (UA) (NEGATIVE) mg/dL Urine Ketones (NEGATIVE) mg/dL Urine Occult Blood (NEGATIVE) Urine Nitrite (NEGATIVE) Urine Bilirubin (NEGATIVE) Urine Urobilinogen (0.2-1.0) E.U./dL Ur Leukocyte Esterase (NEGATIVE) Urine RBC /HPF Urine WBC /HPF Ur Epithelial Cells /LPF Urine Bacteria (NONE TO FEW) /HPF 07/09/18 07/09/18 07/10/18 Range/Units 16:57 20:36 07:05 WBC (4.0-10.2) K/uL RBC (3.77-5.09) M/uL Hgb (11.7-15.5) g/dL Hct (34.0-46.0) % MCV (84.0-98.0) fL MCH (28.2-33.3) pg MCHC (31.7-36.0) g/dL RDW (11.2-14.1) % Plt Count (150-350) K/uL Neut % (Auto) (45.0-80.0) % Lymph % (Auto) (10.0-50.0) % [place] % (Auto) (2.0-14.0) % Eos % (Auto) (0.0-5.0) % Baso % (Auto) (0.0-2.0) % Neut # (Auto) (1.40-7.00) K/uL Lymph # (Auto) (0.50-3.50) K/uL [place] # (Auto) (0.00-1.00) K/uL Eos # (Auto) (0.00-0.50) K/uL Baso # (Auto) (0.00-0.20) K/uL PT (9.5-12.0) SEC INR APTT (21.0-31.3) SEC D-Dimer, Quantitative (0-400) ng/mL Sodium (136-145) mmol/L Potassium (3.5-5.1) mmol/L Chloride (98-107) mmol/L Carbon Dioxide (21.0-32.0) mmol/L BUN (7-18) mg/dL Creatinine (0.51-1.17) mg/dL Est Cr Clr Drug Dosing mL/min Estimated GFR (MDRD) mL/min Glucose (74-106) mg/dL Hemoglobin A1c (4.3-5.7) % Lactic Acid (0.4-2.0) mmol/L Uric Acid (2.6-7.2) mg/dL Calcium (8.5-10.1) mg/dL Magnesium (1.8-2.4) mg/dL Iron 21 L (50-175) ug/dL TIBC 384 (250-450) ug/dL % Saturation [id number] Ferritin 20 (8-388) ng/mL Total Bilirubin (0.2-1.0) mg/dL AST (15-37) U/L ALT (12-78) U/L Alkaline Phosphatase (46-116) IU/L Creatine Kinase 75 (26-308) U/L Creatine Kinase Index 0.8 (0.0-2.5) % CK-MB (CK-2) 0.60 (0.00-3.60) ng/mL Troponin I 0.000 (0.000-0.056) ng/mL NT-Pro-B Natriuret Pep (0-125) pg/mL Total Protein (6.4-8.2) g/dL Albumin (3.4-5.0) g/dL Triglycerides (30-150) mg/dL Cholesterol (100-200) mg/dL LDL Cholesterol, Calc (0-100) mg/dL HDL Cholesterol (40-60) mg/dL Vitamin B12 (193-986) pg/mL Folate (8.6-58.9) ng/mL TSH, Ultra Sensitive (0.358-3.740) mIU/mL HCG, Qual (NEGATIVE) Specimen Type Urincc Urine Color Yellow Urine Appearance Slightly cloudy Urine pH 5.5 (5.0-9.0) Ur Specific [place] >= 1.030 (1.005-1.030) Urine Protein Negative (NEGATIVE) mg/dL Urine Glucose (UA) Negative (NEGATIVE) mg/dL Urine Ketones Trace H (NEGATIVE) mg/dL Urine Occult Blood Trace-intact H (NEGATIVE) Urine Nitrite Positive H (NEGATIVE) Urine Bilirubin Negative (NEGATIVE) Urine Urobilinogen 0.2 (0.2-1.0) E.U./dL Ur Leukocyte Esterase Small H (NEGATIVE) Urine RBC 0-5 /HPF Urine WBC 20-30 H /HPF Ur Epithelial Cells Moderate H /LPF Urine Bacteria Moderate H (NONE TO FEW) /HPF 07/10/18 07/10/18 07/10/18 Range/Units 07:05 07:05 07:05 WBC 7.9 (4.0-10.2) K/uL RBC 4.25 (3.77-5.09) M/uL Hgb 10.3 L (11.7-15.5) g/dL Hct 33.3 L (34.0-46.0) % MCV 78.4 L (84.0-98.0) fL MCH 24.2 L (28.2-33.3) pg MCHC 30.9 L (31.7-36.0) g/dL RDW 16.7 H (11.2-14.1) % Plt Count 394 H (150-350) K/uL Neut % (Auto) 61.8 (45.0-80.0) % Lymph % (Auto) 29.1 (10.0-50.0) % [place] % (Auto) 6.3 (2.0-14.0) % Eos % (Auto) 2.0 (0.0-5.0) % Baso % (Auto) 0.8 (0.0-2.0) % Neut # (Auto) 4.88 (1.40-7.00) K/uL Lymph # (Auto) 2.30 (0.50-3.50) K/uL [place] # (Auto) 0.50 (0.00-1.00) K/uL Eos # (Auto) 0.16 (0.00-0.50) K/uL Baso # (Auto) 0.06 (0.00-0.20) K/uL PT (9.5-12.0) SEC INR APTT (21.0-31.3) SEC D-Dimer, Quantitative (0-400) ng/mL Sodium 143 (136-145) mmol/L Potassium 3.7 (3.5-5.1) mmol/L Chloride 106 (98-107) mmol/L Carbon Dioxide 27.3 (21.0-32.0) mmol/L BUN 10 (7-18) mg/dL Creatinine 1.00 (0.51-1.17) mg/dL Est Cr Clr Drug Dosing 63.25 mL/min Estimated GFR (MDRD) 60 mL/min Glucose 98 (74-106) mg/dL Hemoglobin A1c 6.4 H (4.3-5.7) % Lactic Acid (0.4-2.0) mmol/L Uric Acid (2.6-7.2) mg/dL Calcium 8.4 L (8.5-10.1) mg/dL Magnesium (1.8-2.4) mg/dL Iron (50-175) ug/dL TIBC (250-450) ug/dL % Saturation Ferritin (8-388) ng/mL Total Bilirubin 0.3 (0.2-1.0) mg/dL AST 36 (15-37) U/L ALT 52 (12-78) U/L Alkaline Phosphatase 90 (46-116) IU/L Creatine Kinase 76 (26-308) U/L Creatine Kinase Index 0.9 (0.0-2.5) % CK-MB (CK-2) 0.70 (0.00-3.60) ng/mL Troponin I 0.000 (0.000-0.056) ng/mL NT-Pro-B Natriuret Pep (0-125) pg/mL Total Protein 7.3 (6.4-8.2) g/dL Albumin 3.0 L (3.4-5.0) g/dL Triglycerides 83 (30-150) mg/dL Cholesterol 206 H (100-200) mg/dL LDL Cholesterol, Calc 158 H (0-100) mg/dL HDL Cholesterol 31 L (40-60) mg/dL Vitamin B12 514 (193-986) pg/mL Folate (8.6-58.9) ng/mL TSH, Ultra Sensitive (0.358-3.740) mIU/mL HCG, Qual (NEGATIVE) Specimen Type Urine Color Urine Appearance Urine pH (5.0-9.0) Ur Specific [place] (1.005-1.030) Urine Protein (NEGATIVE) mg/dL Urine Glucose (UA) (NEGATIVE) mg/dL Urine Ketones (NEGATIVE) mg/dL Urine Occult Blood (NEGATIVE) Urine Nitrite (NEGATIVE) Urine Bilirubin (NEGATIVE) Urine Urobilinogen (0.2-1.0) E.U./dL Ur Leukocyte Esterase (NEGATIVE) Urine RBC /HPF Urine WBC /HPF Ur Epithelial Cells /LPF Urine Bacteria (NONE TO FEW) /HPF 07/10/18 Range/Units 07:05 WBC (4.0-10.2) K/uL RBC (3.77-5.09) M/uL Hgb (11.7-15.5) g/dL Hct (34.0-46.0) % MCV (84.0-98.0) fL MCH (28.2-33.3) pg MCHC (31.7-36.0) g/dL RDW (11.2-14.1) % Plt Count (150-350) K/uL Neut % (Auto) (45.0-80.0) % Lymph % (Auto) (10.0-50.0) % [place] % (Auto) (2.0-14.0) % Eos % (Auto) (0.0-5.0) % Baso % (Auto) (0.0-2.0) % Neut # (Auto) (1.40-7.00) K/uL Lymph # (Auto) (0.50-3.50) K/uL [place] # (Auto) (0.00-1.00) K/uL Eos # (Auto) (0.00-0.50) K/uL Baso # (Auto) (0.00-0.20) K/uL PT (9.5-12.0) SEC INR APTT (21.0-31.3) SEC D-Dimer, Quantitative (0-400) ng/mL Sodium (136-145) mmol/L Potassium (3.5-5.1) mmol/L Chloride (98-107) mmol/L Carbon Dioxide (21.0-32.0) mmol/L BUN (7-18) mg/dL Creatinine (0.51-1.17) mg/dL Est Cr Clr Drug Dosing mL/min Estimated GFR (MDRD) mL/min Glucose (74-106) mg/dL Hemoglobin A1c (4.3-5.7) % Lactic Acid (0.4-2.0) mmol/L Uric Acid (2.6-7.2) mg/dL Calcium (8.5-10.1) mg/dL Magnesium (1.8-2.4) mg/dL Iron (50-175) ug/dL TIBC (250-450) ug/dL % Saturation Ferritin (8-388) ng/mL Total Bilirubin (0.2-1.0) mg/dL AST (15-37) U/L ALT (12-78) U/L Alkaline Phosphatase (46-116) IU/L Creatine Kinase (26-308) U/L Creatine Kinase Index (0.0-2.5) % CK-MB (CK-2) (0.00-3.60) ng/mL Troponin I (0.000-0.056) ng/mL NT-Pro-B Natriuret Pep (0-125) pg/mL Total Protein (6.4-8.2) g/dL Albumin (3.4-5.0) g/dL Triglycerides (30-150) mg/dL Cholesterol (100-200) mg/dL LDL Cholesterol, Calc (0-100) mg/dL HDL Cholesterol (40-60) mg/dL Vitamin B12 (193-986) pg/mL Folate 8.5 L (8.6-58.9) ng/mL TSH, Ultra Sensitive (0.358-3.740) mIU/mL HCG, Qual (NEGATIVE) Specimen Type Urine Color Urine Appearance Urine pH (5.0-9.0) Ur Specific [place] (1.005-1.030) Urine Protein (NEGATIVE) mg/dL Urine Glucose (UA) (NEGATIVE) mg/dL Urine Ketones (NEGATIVE) mg/dL Urine Occult Blood (NEGATIVE) Urine Nitrite (NEGATIVE) Urine Bilirubin (NEGATIVE) Urine Urobilinogen (0.2-1.0) E.U./dL Ur Leukocyte Esterase (NEGATIVE) Urine RBC /HPF Urine WBC /HPF Ur Epithelial Cells /LPF Urine Bacteria (NONE TO FEW) /HPF FRANCISCA Results - Last 24 hrs: Urine culture and sensitivity pending Med Orders - Current: Current Medications Acetaminophen (Tylenol) 650 mg PO Q4H PRN PRN Reason: Pain Last Admin: 07/10/18 08:08 Dose: 650 mg Aspirin (Aspirin) 81 mg PO BRK [facility] Last Admin: 07/10/18 07:58 Dose: 81 mg Bupropion HCl (Wellbutrin Xl) 150 mg PO BEDTIME [facility] Last Admin: 07/09/18 19:33 Dose: 150 mg Diazepam (Valium.) 5 mg PO BEDTIME [facility] Last Admin: 07/09/18 19:33 Dose: 5 mg Doxepin HCl (Sinequan) 75 mg PO BEDTIME PRN PRN Reason: Insomnia Last Admin: 07/09/18 19:49 Dose: 75 mg Ceftriaxone Sodium 1 gm/ (Sodium Chloride) 100 mls @ 200 mls/hr IV Q12H [facility] Last Admin: 07/10/18 08:00 Dose: 200 mls/hr Levothyroxine Sodium (Synthroid) 50 mcg PO ACBREAKFAST [facility] Last Admin: 07/10/18 07:58 Dose: 50 mcg Nitroglycerin (Nitrostat) 0.4 mg SL ONETIME STA Stop: 07/10/18 14:18 Last Admin: 07/09/18 14:24 Dose: 0.4 mg Non-Formulary Medication (Brexpiprazole [Rexulti]) 0.5 mg PO DAILY [facility] Non-Formulary Medication (Naltrexone [Naltrexone]) 50 mg PO BEDTIME [facility] Sodium Chloride (Saline Flush) 10 ml FLUSH ASDIRECTED PRN PRN Reason: Keep Vein Open Last Admin: 07/10/18 08:01 Dose: 10 ml Sodium Chloride (Saline Flush) 10 ml FLUSH Q12HR PRN PRN Reason: Keep Vein Open Venlafaxine HCl (Effexor Xr) 225 mg PO BEDTIME [facility] Last Admin: 07/09/18 19:48 Dose: 225 mg Discontinued Medications Al Hydroxide/Mg Hydroxide (Gi Cocktail) 30 ml PO ONETIME ONE Stop: 07/09/18 16:52 Last Admin: 07/09/18 17:38 Dose: 30 ml Aspirin (Aspirin) 324 mg CHEW ONETIME ONE Stop: 07/09/18 14:14 Last Admin: 07/09/18 14:21 Dose: 324 mg Famotidine (Pepcid) 40 mg IVPUSH ONETIME ONE Stop: 07/09/18 14:14 Last Admin: 07/09/18 14:29 Dose: 40 mg Metoprolol Tartrate (Lopressor) 2.5 mg IVPUSH ONETIME ONE Stop: 07/09/18 14:14 Last Admin: 07/09/18 14:25 Dose: 2.5 mg Ticagrelor (Brilinta) 180 mg PO ONETIME ONE Stop: 07/09/18 14:14 Last Admin: 07/09/18 14:21 Dose: 180 mg Venlafaxine HCl (Effexor Xr) 225 mg PO DAILY [facility] - Exam Quality Assessment: Reports: DVT Prophylaxis. Denies: Supplemental Oxygen, Central Line/PICC, Urine Catheter, Skin Breakdown General: Reports: Alert, Oriented, Cooperative, No Acute Distress HEENT: Reports: Pupils Equal, Pupils Reactive, EOMI, Mucous Membr. Moist/[place] Neck: Reports: Supple, Trachea Midline, No JVD, No Thyromegaly, +2 Carotid Pulse wo Bruit Lungs: Reports: Clear to Auscultation, Normal Respiratory Effort. Denies: Rub Cardiovascular: Reports: Regular Rate, Regular Rhythm, No Murmurs. Denies: Gallops, Rubs GI/Abdominal Exam: Normal Bowel Sounds, Soft, Non-Tender, No Organomegaly, No Distention, No Abnormal Bruit, No Mass, Other (Obese). No: Guarding (Female) Exam: Deferred Rectal (Female) Exam: Deferred Back Exam: Reports: Normal Inspection, Full Range of Motion. Denies: CVA Tenderness (L), CVA Tenderness (R), Muscle Spasm Extremities: Normal Range of Motion, Non-Tender, Normal Capillary Refill, Pedal Edema (Stable trace bilateral pedal/pretibial edema). No: No Pedal Edema, Luke 's Sign Skin: Reports: Warm, Dry, Intact. Denies: Ecchymosis Neurological: Reports: No New Focal Deficit Psy/Mental Status: Reports: Alert, Anxious (Mild), Depressed (Mild). Denies: Agitated, Suicidal Ideation, Homicidal Ideation, Hallucinations, Withdrawal Symptoms EKG INTERPRETATION EKG Date: 07/10/18 Time: 07:20 Rhythm: NSR Rate (Beats/Min): 65 [place]: Normal (Left cardiac axis) P-Wave: Enlarged (Diffuse biphasicmild) QRS: Normal (0.09 seconds) ST-T: Normal (New T wave inversion in lead V1 with nonspecific ST ages in V2) QT: Normal ME/PQ Interval: 0.15 seconds with poor R-wave progression in the anterior leads. Comparison: Change From Previous EKG (As above since 07/09/18.) EKG Interpretation Comments: 1. No acute ischemic changes 2. Left Atrial enlargement
[2018-07-10] MEDS ORDERED: methylPREDNISolone Acetate 80 MG/ML SDV IM ONE (10:25)
--- NOTE | 2018-07-11 11:47 | PCM.SN ---
- Free Text/Narrative Note: Urine culture + for E.Coli Susceptible to Rocephin which patient received while inpatient. Resistant to Septra which was prescribed at discharge. Rx for Macrobid sent to [facility]. Will have nursing staff contact patient concerning medication change as well as to discontinue the Septra.
== END 2018-07-10 12:30 | disposition home or self-care (01) ==
LOC: LL.ED 14:09 → LL.MS 16:10
PROVIDERS: ADMIT Family Medicine; ATTEND Family Medicine
DX: R07.9 Chest pain, unspecified (principal); K21.9 Gastro-esophageal reflux disease without esophagitis; I10 Essential (primary) hypertension; E03.9 Hypothyroidism, unspecified; J45.20 Mild intermittent asthma, uncomplicated; E78.5 Hyperlipidemia, unspecified; D50.9 Iron deficiency anemia, unspecified; E83.51 Hypocalcemia; E88.09 Other disorders of plasma-protein metabolism, not elsewhere classified; N30.00 Acute cystitis without hematuria; B96.20 Unspecified Escherichia coli [E. coli] as the cause of diseases classified elsewhere; G47.30 Sleep apnea, unspecified; M15.0 Primary generalized (osteo)arthritis; F41.8 Other specified anxiety disorders; Z79.82 Long term (current) use of aspirin; Z79.51 Long term (current) use of inhaled steroids; Z79.899 Other long term (current) drug therapy; Z99.89 Dependence on other enabling machines and devices
CPT/HCPCS: 36415; 71045; 80053; 80061; 81001; 82550; 82553; 82607; 82728; 82746; 83036; 83540; 83550; 83605; 83735; 83880; 84443; 84484; 84550; 84703; 85025; 85379; 85610; 85730; 87086; 87088; 87186; 93005; 96365; 96366; 96372; 96375; A9270; G0378; J0696; J1040; J3490; J7050; 96374

== ENCOUNTER 2019-11-06 13:24 | Observation (INO) | payer BC, MEDICAID, OTHER ==
[2019-11-06] MEDS ORDERED: Famotidine 20 MG/2 ML SDV IVPUSH ONE (13:27)
[2019-11-06] MEDS ORDERED: Metoprolol Tartrate 5 MG/5 ML SDV IVPUSH ONE (13:27)
--- NOTE | 2019-11-06 13:27 | EDM.PDOC ---
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 Dose Admin Famotidine 40 mg 11/06/19 13:27 11/06/19 13:49 Pepcid IVPUSH 11/06/19 13:28 40 mg ONETIME ONE Administration Metoprolol Tartrate 2.5 mg 11/06/19 13:27 11/06/19 13:49 Lopressor IVPUSH 11/06/19 13:28 2.5 mg ONETIME ONE Administration - Radiology Interpretation Free Text/Narrative:: 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 Chest x-ray, portable, shows mild pulmonary obstructive disease with no pulmonary infiltrates, cardiomegaly, CHF, pneumothorax, etc. Possible mild pulmonary hypertension noted. Departure - Departure Time of Disposition: 15:45 Disposition: Refer to Observation Condition: Good Clinical Impression: Chest pain, Mixed anxiety depressive disorder, Peptic reflux disease, Hypertension, Dyslipidemia, Asthma, Hypothyroidism, Shortened MN interval, PVC's (premature ventricular contractions), Leukocytosis, Cholelithiasis Instructions: Premature Ventricular Contraction Referrals: PCP,None [Primary Care Provider] - Forms: ED Department Discharge, ED Return to Work/School Form Additional Instructions: See plan: AT DISCHARGE [id number]: 1. Followup with your regular provider in 2-3 days as directed for reevaluation and repeat EKG with possible additional blood work depending on your symptoms at that time. Bring these discharge instructions with you to that visit. 2. Recommend referral by your regular provider to a marine engine machinist apprentice at [facility] in [facility] for possible heart catheterization, event monitor, etc. secondary to suspicions of a false recent positive Cardiolite stress test 3. Limit activity to 25% of normal maximum activity with driving, fall, and injury precautions as discussed 4. Work excuse-complete work excuse with patient not to return back to work until released by her marine engine machinist apprentice and/your regular provider. 5. Immediately after this visit verify that your cellular telephone's voicemail has been activated and is empty. Also verify that your home telephone's answering machine is operating properly and has space to receive messages. Note that it is sometimes necessary for us to be able to contact you at a later date to discuss your medical care. 6. Please remember that we are ALWAYS here for you and want to answer any questions you may have. Feel free to call the hospital any time and we call you back RENUKA. 7. Maintain recommended quarantine as per standard ambulance protocol, including use of continuous PPE, COVID-19 testing in 10-14 days, etc., as discussed with return to previous social distancing, use of masks, etc., thereafter as per current recommended CDC guidelines Sepsis Event Note (ED) - Focused Exam Vital Signs: Vital Signs Temp Pulse Pulse Resp BP BP Pulse Ox 11/06/19 14:59 61 18 102/63 97 11/06/19 14:44 62 20 112/67 95 11/06/19 14:29 62 20 106/78 96 11/06/19 14:15 37.1 C 76 20 118/78 95 11/06/19 13:59 61 20 111/76 96 11/06/19 13:49 67 121/65 11/06/19 13:45 69 18 121/65 93 L 11/06/19 13:27 36.8 C 74 18 125/93 H 96 - Problem List & Annotations (1) PVC's (premature ventricular contractions) SNOMED Code(s): 69126545 Code(s): I49.3 - VENTRICULAR PREMATURE DEPOLARIZATION Status: Acute Priority: High Current Visit: Yes Onset Date: 11/06/19 Annotation/Comment:: Frequent uniform PVCs with overall good response to addition of low-dose IV Lopressor therapy during emergency room care. Her current Lopressor therapy will be further increased. Further cardiology consultation/evaluation, event monitor, etc. as below. (2) Chest pain SNOMED Code(s): 22233224 Code(s): R07.9 - CHEST PAIN, UNSPECIFIED Status: Acute Priority: High Current Visit: Yes Onset Date: 07/07/18 Annotation/Comment:: Recurrent chest pain earlier this week, however not during the last couple of days. No chest p ain at time of arrival to emergency room with chest pain protocol not initiated. Various therapeutic options were discussed with the patient, who is requesting further hospitalization for medication adjustment, rule out of NM, etc. Despite recent negative Cardiolite stress test as above suspect false negative evaluation with cardiology referral RENUKA after discharge for possible heart catheterization, event monitor, etc. as per preliminary discharge instructions as above. Qualifiers: Chest pain type: precordial pain Qualified Code(s): R07.2 - Precordial pain (3) Elevated lactic acid level SNOMED Code(s): 1561465 Code(s): R79.89 - OTHER SPECIFIED ABNORMAL FINDINGS OF BLOOD CHEMISTRY Status: Acute Priority: High Current Visit: Yes Onset Date: 11/06/19 Annotation/Comment:: Initiate lactic acid/sepsis protocol with repeat lactic acid level with next set of cardiac enzymes. IV Levaquin therapy initiated in the emergency room. No direct clinical evidence of sepsis despite mild leukocytosis. Attempt to obtain a urine specimen RENUKA. 1 L IV bolus of lactated Ringer's to be given shortly after admission as per sepsis protocol with caution secondary to her borderline BNP elevation, however no clinical evidence of significant CHF. (4) Elevated LFTs SNOMED Code(s): 043847810, 737525277 Code(s): R79.89 - OTHER SPECIFIED ABNORMAL FINDINGS OF BLOOD CHEMISTRY Status: Acute Priority: High Current Visit: Yes Onset Date: 11/06/19 Annotation/Comment:: Known history of fatty liver by CT scan as above. No abdominal complaints. Additional amylase and lipase in the a.m. Further work- up depending on her clinical course. Note recent iron infusions for her iron deficiency anemia (5) Shortened MN interval SNOMED Code(s): 99919590 Code(s): R94.31 - ABNORMAL ELECTROCARDIOGRAM [ECG] [EKG] Status: Acute Priority: Medium Current Visit: Yes Onset Date: ~07/17/18 Annotation/Comment:: Mildly progressive short MN interval as above. No delta waves noted. Cardiology evaluation as above. (6) Asthma SNOMED Code(s): 638972211 Code(s): J45.909 - UNSPECIFIED ASTHMA, UNCOMPLICATED Status: Chronic Priority: Medium Current Visit: Yes Annotation/Comment:: Stable by history with no recent fever or bronchitic type symptoms, despite mild WBC elevation as above. Attempt to obtain sputum specimen RENUKA secondary to lactic acid elevation with no evidence of bronchitis or pneumonia by chest x-ray or clinical exam. Consider PFTs on an outpatient basis depending on her clinical course. Qualifiers: Asthma severity: unspecified severity Asthma persistence: intermittent Asthma complication type: uncomplicated Qualified Code(s): J45.20 - Mild intermittent asthma, uncomplicated (7) Dyslipidemia SNOMED Code(s): 941082341 Code(s): E78.5 - HYPERLIPIDEMIA, UNSPECIFIED Status: Chronic Priority: Medium Current Visit: Yes Onset Date: 11/01/15 Annotation/Comment:: Known dyslipidemia and obesity. Weight loss in moderation advisable.. Lipid panel and glycosylated hemoglobin to be conducted in the a.m. Note fatty liver as above. Dietary information to be provided once again at discharge from this facility. (8) Hypertension SNOMED Code(s): 81630314 Code(s): I10 - ESSENTIAL (PRIMARY) HYPERTENSION Status: Chronic Priority: High Current Visit: Yes Onset Date: 10/31/15 Annotation/Comment:: Hypertensive response and early sinus tachycardia during Cardiolite stress test in 2019 as above. Continue medication adjustments during this hospitalization. Continue to observe closely by her regular providers. Qualifiers: Hypertension type: essential hypertension Qualified Code(s): I10 - Essential (primary) hypertension (9) Hypothyroidism SNOMED Code(s): 60941353 Code(s): E03.9 - HYPOTHYROIDISM, UNSPECIFIED Status: Chronic Priority: Medium Current Visit: Yes Onset Date: 10/31/15 Annotation/Comment:: Currently under therapy. TSH normal on admission. Qualifiers: Hypothyroidism type: acquired Qualified Code(s): E03.9 - Hypothyroidism, unspecified (10) Mixed anxiety depressive disorder SNOMED Code(s): 701922170 Code(s): F41.8 - OTHER SPECIFIED ANXIETY DISORDERS Status: Chronic Priority: High Current Visit: Yes Annotation/Comment:: Stable by history with multiple current medications. Continue to observe closely by her regular provider. (11) Peptic reflux disease SNOMED Code(s): 102166221 Code(s): K21.9 - GASTRO-ESOPHAGEAL REFLUX DISEASE WITHOUT ESOPHAGITIS Status: Chronic Priority: Medium Current Visit: Yes Annotation/Comment:: High-dose IV Pepcid given as GI prophylaxis. Note recent EGD as above. (12) Anemia SNOMED Code(s): 069520155 Code(s): D64.9 - ANEMIA, UNSPECIFIED Status: Chronic Priority: Medium Current Visit: No Onset Date: 11/01/15 Annotation/Comment:: Known history of iron deficiency anemia including her recent iron infusion therapy. Recent EGD as above with planned colonoscopy in the near future as per HPI. Qualifiers: Anemia type: iron deficiency Iron deficiency anemia type: unspecified iron deficiency Qualified Code(s): D50.9 - Iron deficiency anemia, unspecified (13) Cholelithiasis SNOMED Code(s): 822358623 Code(s): K80.20 - CALCULUS OF GALLBLADDER W/O CHOLECYSTITIS W/O OBSTRUCTION Status: Chronic Priority: Medium Current Visit: Yes Onset Date: 07/16/19 Annotation/Comment:: Nonsymptomatic. Observe for now. Note LFTs elevation as above without evidence of obstruction. Qualifiers: Cholelithiasis location: gallbladder Cholecystitis presence: without cholecystitis Biliary obstruction: without biliary obstruction Qualified Code(s): K80.20 - Calculus of gallbladder without cholecystitis without obstruction - Problem List Review Problem List Initiated/Reviewed/Updated: Yes - My Orders Last 24 Hours: My Active Orders 11/06/19 Breakfast Nothing per Oral Now Diet [DIET] 11/06/19 13:27 Cardiac Monitoring [RC] . DIRECTED EKG Documentation Completion [RC] ASDIRECTED Oxygen Therapy, ED [RC] PRN Peripheral IV Care [RC] . DIRECTED Pulse Oximetry [RC] CONTINUOUS Up With Assistance [RC] PFP Vital Signs [RC] PFP Chest 1V Frontal [CR] Stat Sodium Chloride 0.9% [Saline Flush] 10 ml FLUSH ASDIRECTED PRN Obtain Past Medical Record [OM.PC] Urgent Peripheral IV Insertion Adult [OM.PC] Stat Resuscitation Status Stat 11/06/19 14:57 Lactated Ringers [Ringers, Lactated] 1,000 ml IV .BOLUS 11/06/19 14:59 Levofloxacin/Dextrose 5%-Water [Levaquin in D5W 500 MG/100 ML] 500 mg Premix Bag 1 bag IV ONETIME 11/06/19 15:17 CULTURE BLOOD [BC] Stat CULTURE BLOOD [BC] Stat Blood Culture x2 Reflex Set [OM.PC] Urgent - Assessment/Plan Admission H&P: Please use this note as an admission H&P Last 24 Hours: My Active Orders 11/06/19 Breakfast Nothing per Oral Now Diet [DIET] 11/06/19 13:27 Cardiac Monitoring [RC] . DIRECTED EKG Documentation Completion [RC] ASDIRECTED Oxygen Therapy, ED [RC] PRN Peripheral IV Care [RC] . DIRECTED Pulse Oximetry [RC] CONTINUOUS Up With Assistance [RC] PFP Vital Signs [RC] PFP Chest 1V Frontal [CR] Stat Sodium Chloride 0.9% [Saline Flush] 10 ml FLUSH ASDIRECTED PRN Obtain Past Medical Record [OM.PC] Urgent Peripheral IV Insertion Adult [OM.PC] Stat Resuscitation Status Stat 11/06/19 14:57 Lactated Ringers [Ringers, Lactated] 1,000 ml IV .BOLUS 11/06/19 14:59 Levofloxacin/Dextrose 5%-Water [Levaquin in D5W 500 MG/100 ML] 500 mg Premix Bag 1 bag IV ONETIME 11/06/19 15:17 CULTURE BLOOD [BC] Stat CULTURE BLOOD [BC] Stat Blood Culture x2 Reflex Set [OM.PC] Urgent Assessment:: As above. Plan: As above. Extensive precautions were given to the patient, who is in agreement with the treatment plan. The patient's condition is stable enough for observation status and general supervision. Dafne hall assumes patient care in the a.m.
[2019-11-06] MEDS: Sodium Chloride 0.9% 10 ML Syringe FLUSH PRN ×2 (13:49→16:56)
[2019-11-06 14:40] LABS: CHLORIDE,CL 100 mmol/L (98-107); SODIUM,NA 136 mmol/L (136-145)
[2019-11-06 14:41] LABS: PTT,PARTIAL THROMBOPLSTIN TIME 31.7 SEC (24.5-32.8)
[2019-11-06] MEDS ORDERED: Lactated Ringers 1,000 ML IV ONE (14:57)
[2019-11-06] MEDS ORDERED: Levofloxacin/Dextrose 5%-Water 500 MG in Premix Bag 1 BAG IV ONE (14:59)
[2019-11-06] MEDS ORDERED: Acetaminophen 325 MG Tab PO PRN (16:28)
[2019-11-06] MEDS ORDERED: Temazepam 15 MG Cap PO PRN (16:28)
[2019-11-06] MEDS ORDERED: Sodium Chloride 0.9% 10 ML Syringe FLUSH PRN (16:28)
[2019-11-06] MEDS ORDERED: Fluticasone Propionate Nasal Spray 16 GM Bottle NASBOTH PRN (17:13)
[2019-11-06] MEDS ORDERED: Doxepin 25 MG Cap PO PRN (17:13)
[2019-11-06] MEDS ORDERED: Albuterol HFA 8.5 GM Inhaler INH PRN (17:13)
[2019-11-06] MEDS ORDERED: Metoprolol Succinate 25 MG Tab.ER PO SCH (18:00)
[2019-11-06] MEDS ORDERED: Metoprolol Succinate 50 MG Tab.ER PO SCH (18:00)
[2019-11-06] MEDS: metFORMIN 500 MG Tab PO SCH (18:17)
[2019-11-06] MEDS: Formoterol/Mometasone 200-5 MCG 8.8 GM Inhaler IH SCH (19:51)
[2019-11-06] MEDS ORDERED: Montelukast 10 MG Tab PO SCH (20:00)
[2019-11-06] MEDS ORDERED: Venlafaxine 75 MG Cap.ER PO SCH (20:00)
[2019-11-07 07:10] LABS: HEMOGLOBIN A1C 7.2 % (4.3-5.7)
[2019-11-07 07:21] LABS: CHLORIDE,CL 102 mmol/L (98-107); SODIUM,NA 138 mmol/L (136-145)
[2019-11-07] MEDS ORDERED: Levothyroxine 50 MCG Tab PO SCH (07:30)
[2019-11-07] MEDS ORDERED: BUPROPION HCL 400 MG PO SCH (08:00)
[2019-11-07] MEDS ORDERED: Omeprazole 20 MG Cap.CR PO SCH (08:00)
[2019-11-07] MEDS ORDERED: buPROPion 150 MG Tab.SR PO SCH (08:00)
[2019-11-07] MEDS ORDERED: Metoprolol Succinate 50 MG Tab.ER PO SCH (08:00)
[2019-11-07] MEDS ORDERED: Iron Polysaccharides Complex 150 MG Cap PO SCH (08:00)
[2019-11-07] MEDS: metFORMIN 500 MG Tab PO SCH (08:23)
[2019-11-07] MEDS: Formoterol/Mometasone 200-5 MCG 8.8 GM Inhaler IH SCH (08:24)
[2019-11-07 12:37] VITALS: BP 127/81
[2019-11-07 12:43] VITALS: PULSE 78
--- NOTE | 2019-11-07 13:21 | PCM.DCSUM1 ---
Discharge Summary - Hospital Course Brief History: Admitted for further evaluation of PVCs/recent chest discomfort/palpitations Diagnosis: Stroke: No - Discharge Data Discharge Date: 11/07/19 Discharge Disposition: Home, Self-Care 01 Condition: Good - Referral to Home Health Primary Care Physician: PCP None - Discharge Diagnosis/Problem(s) (1) Chest pain SNOMED Code(s): 00546034 ICD Code: R07.9 - CHEST PAIN, UNSPECIFIED Status: Acute Priority: [facility] Current Visit: Yes Onset Date: 07/07/18 Problem Details: Recurrent chest pain earlier this week, however not during the last couple of days. No chest pain at time of arrival to emergency room with chest pain protocol not initiated. Various therapeutic options were discussed with the patient, who is requesting further hospitalization for medication adjustment, rule out of [place], etc. Troponins negative. No return of chest discomfort during stay. Recent negative Cardiolite stress test previously performed may be false negative evaluation. Call placed to [facility] an patient reviewed with who recommended patient be referred to Cardiology for outpatient followup. Qualifiers: Chest pain type: precordial pain Qualified Code(s): R07.2 - Precordial pain (2) Elevated LFTs SNOMED Code(s): 936632101, 899087421 ICD Code: R79.89 - OTHER SPECIFIED ABNORMAL FINDINGS OF BLOOD CHEMISTRY Status: Acute Priority: [facility] Current Visit: Yes Onset Date: 11/06/19 Problem Details: Known history of fatty liver by CT scan as above. No abdominal complaints. Amylase and lipase normal. Patient started on Metformin last spring per her recollection and elevated LFTs noted afterwards. May in part be due to medication toxicity from Metformin. Will d/c Metformin for now. Patient to follow up for ongoing care with PCP. (3) Elevated lactic acid level SNOMED Code(s): 5677365 ICD Code: R79.89 - OTHER SPECIFIED ABNORMAL FINDINGS OF BLOOD CHEMISTRY Status: Acute Priority: [facility] Current Visit: Yes Onset Date: 11/06/19 Problem Details: Initiated lactic acid/sepsis protocol. IV Levaquin therapy initiated in the emergency room. No direct clinical evidence of sepsis despite mild leukocytosis. Patient has not provided a urine specimen. 1 L IV bolus of lactated Ringer's given shortly per sepsis protocol. (4) PVC's (premature ventricular contractions) SNOMED Code(s): 90736346 ICD Code: I49.3 - VENTRICULAR PREMATURE DEPOLARIZATION Status: Acute Priority: High Current Visit: Yes Onset Date: 11/06/19 Problem Details: Frequent uniform PVCs with overall good response to addition of low-dose IV Lopressor therapy in ER. Became more frequent again as medication wore off during night hours. from Cardiology did not advise a dose increase in Metoprolol at this time. (5) Shortened NV interval SNOMED Code(s): 90221959 ICD Code: R94.31 - ABNORMAL ELECTROCARDIOGRAM [ECG] [EKG] Status: Acute Priority: Medium Current Visit: Yes Onset Date: ~07/17/18 Problem Details: Mildly progressive short NV as noted in initial note. No delta waves noted. Cardiology evaluation as above. (6) Asthma SNOMED Code(s): 181693484 ICD Code: J45.909 - UNSPECIFIED ASTHMA, UNCOMPLICATED Status: Chronic Priority: Medium Current Visit: Yes Problem Details: Stable by history with no recent fever or bronchitic type symptoms. Has been more SOB with activity the last few weeks. No evidence of bronchitis or pneumonia by chest x-ray or clinical exam. Follow up with PCP. Qualifiers: Asthma severity: unspecified severity Asthma persistence: intermittent Asthma complication type: uncomplicated Qualified Code(s): J45.20 - Mild intermittent asthma, uncomplicated (7) Cholelithiasis SNOMED Code(s): 351425508 ICD Code: K80.20 - CALCULUS OF GALLBLADDER W/O CHOLECYSTITIS W/O OBSTRUCTION Status: Chronic Priority: Medium Current Visit: Yes Onset Date: 07/16/19 Problem Details: Nonsymptomatic. Observe for now. Note LFTs elevation as above without evidence of obstruction. Qualifiers: Cholelithiasis location: gallbladder Cholecystitis presence: without cholecystitis Biliary obstruction: without biliary obstruction Qualified Code(s): K80.20 - Calculus of gallbladder without cholecystitis without obstruction (8) Dyslipidemia SNOMED Code(s): 436836762 ICD Code: E78.5 - HYPERLIPIDEMIA, UNSPECIFIED Status: Chronic Priority: Medium Current Visit: Yes Onset Date: 11/01/15 Problem Details: Known dyslipidemia and obesity. Weight loss in moderation advisable. High LDL/Chol. Low HDL. Hx fatty liver. Follow up with PCP. (9) Hypertension SNOMED Code(s): 80794934 ICD Code: I10 - ESSENTIAL (PRIMARY) HYPERTENSION Status: Chronic Priority: High Current Visit: Yes Onset Date: 10/31/15 Problem Details: Hypertensive response and early sinus tachycardia during Cardiolite stress test in 2019 as above. Last several BPs within normal limit. Continue to observe closely by her regular providers. Qualifiers: Hypertension type: essential hypertension Qualified Code(s): I10 - Essential (primary) hypertension (10) Hypothyroidism SNOMED Code(s): 45580710 ICD Code: E03.9 - HYPOTHYROIDISM, UNSPECIFIED Status: Chronic Priority: Medium Current Visit: Yes Onset Date: 10/31/15 Problem Details: Currently under therapy. TSH normal on admission. Qualifiers: Hypothyroidism type: acquired Qualified Code(s): E03.9 - Hypothyroidism, unspecified (11) Mixed anxiety depressive disorder SNOMED Code(s): 571572729 ICD Code: F41.8 - OTHER SPECIFIED ANXIETY DISORDERS Status: Chronic Priority: High Current Visit: Yes Problem Details: Stable by history with multiple current medications. Continue to observe closely by her regular provider. (12) Peptic reflux disease SNOMED Code(s): 035358558 ICD Code: K21.9 - GASTRO-ESOPHAGEAL REFLUX DISEASE WITHOUT ESOPHAGITIS Status: Chronic Priority: Medium Current Visit: Yes Problem Details: High- dose IV Pepcid given as GI prophylaxis. Note recent EGD as above. (13) Anemia SNOMED Code(s): 830841089 ICD Code: D64.9 - ANEMIA, UNSPECIFIED Status: Chronic Priority: Medium Current Visit: No Onset Date: 11/01/15 Problem Details: Known history of iron deficiency anemia including her recent iron infusion therapy. Recent EGD as above with planned colonoscopy in the near future as per HPI. Qualifiers: Anemia type: iron deficiency Iron deficiency anemia type: unspecified iron deficiency Qualified Code(s): D50.9 - Iron deficiency anemia, unspecified - Patient Summary/Data Hospital Course: Patient continued to have frequent regular PVCs throughout much of her stay. Vital signs stable. Troponins negative. No evidence of acute infection. Lactic acid down to 2 today. UA normal. Call placed to [facility] and pt reviewed with . recommended no changes for now with patient's meds, including Metoprolol. No other changes recommended and patient is to follow up as outpatient with Cardiology. Covid testing performed given the arrhythmia/increased SOB but patient has not had any URI/GI complaints. Will d/c Metformin as that can cause hepatotoxicity and was started before patient's LFTs started to rise. Long time spend discussing lower carb whole foods diet approach with patient. Recommended targeting 100-120 grams of daily carbs initially. Patient interested in trying dietary approach to help with control of her diabetes/hypertension/weight. To follow up closely with primary provider in addition to Cardiology for ongoing concerns/care. - Patient Instructions Diet: Limited Carb (target 100-120gm carbs daily/anti-inflammatory) Activity: As Tolerated Driving: May Drive Today Other/Special Instructions: Stop the Metformin. Highly recommended instituting diet and lifestyle changes we reviewed today. Get Cardiology referral from the clinic and make an appointment. If you have any sudden problems/worsening get rechecked!!! Continue to follow up with your primary provider for labs, etc. - Discharge Plan *PRESCRIPTION DRUG MONITORING PROGRAM REVIEWED*: Not Applicable *COPY OF PRESCRIPTION DRUG MONITORING REPORT IN PATIENT NARCISO: Not Applicable Home Medications: Home Meds Albuterol Sulfate [Proair Hfa] 2 puff INH Q4HR PRN 10/31/15 [History] Doxepin [SINEquan] 75 mg PO BEDTIME PRN 10/31/15 [History] Fluticasone Propionate [Flonase] 1 spray INH BID PRN 10/31/15 [History] Omeprazole 40 mg PO DAILY 10/31/15 [History] Venlafaxine [Effexor XR] 225 mg PO BEDTIME 10/31/15 [History] Levothyroxine [Synthroid] 50 mcg PO ACBREAKFAST #60 tablet 11/01/15 [Rx] diazePAM [Valium] 10 mg PO BEDTIME 07/09/18 [History] Acetaminophen [Tylenol] 650 mg PO Q4H PRN tablet 07/10/18 [Rx] Albuterol/Ipratropium [DuoNeb 3.0-0.5 MG/3 ML] 3 ml INH Q6H PRN 07/16/19 [History] Iron Polysaccharides Complex [Ferrex 150] 150 mg PO DAILY 07/16/19 [History] Metoprolol Succinate [Toprol Xl] 50 mg PO DAILY 07/16/19 [History] Montelukast Sodium [Singulair] 10 mg PO BEDTIME 07/16/19 [History] Non-Formulary Medication [NF Drug] 1 applic TOP BID PRN 07/16/19 [History] Fluticasone Propion/Salmeterol [Fluticasone-Salmeterol 500-50] 1 puff IH BID@07/17/19 [History] Ibuprofen 1 - 3 tab PO Q6H PRN 07/17/19 [History] buPROPion HCL [Wellbutrin SR] 400 mg PO DAILY 11/06/19 [History] Patient Handouts: Premature Ventricular Contraction Forms: ED Department Discharge, ED Return to Work/School Form Referrals: PCP,None [Primary Care Provider] - - Discharge Summary/Plan Comment DC Time >30 min.: No - General Info Date of Service: 11/07/19 Admission Dx/Problem (Free Text: Patient admitted observation from ER due to sensation of tachycardia earlier and noted to have frequent PVCs. Subjective Update: Feels tire. PVCs have currently improved. Functional Status: Reports: Pain Controlled Numeric/FACES Score: 0 - Review of Systems General: Reports: Fatigue. Denies: Fever, Weakness, Malaise, Chills, Night Sw eats HEENT: Denies: Ear Pain, Eye Pain, Sinus Congestion, Sore Throat, Rhinitis, Visual Changes Pulmonary: Reports: Shortness of Breath (with activity). Denies: Pleuritic Chest Pain, Cough, Sputum, Hemoptysis, Wheezing Cardiovascular: Reports: Palpitations, Dyspnea on Exertion, Lightheadedness (improved). Denies: Chest Pain, Orthopnea, PND, Edema Gastrointestinal: Reports: No Symptoms Genitourinary: Reports: No Symptoms Musculoskeletal: Reports: No Symptoms Skin: Reports: No Symptoms Neurological: Denies: Confusion, Headache, Numbness, Trouble Speaking, Change in Speech, Gait Disturbance Psychiatric: Reports: No Symptoms - Patient Data Vitals - Most Recent: Last Vital Signs Temp 36.6 C 11/07/19 12:00 Pulse 78 11/07/19 12:00 Resp 16 11/07/19 12:00 BP 127/81 11/07/19 12:00 Pulse Ox 96 11/07/19 12:00 Weight - Most Recent: 119.703 kg I&O - Last 24 hours: Intake & Output 11/06/19 11/07/19 11/07/19 22:59 06:59 14:59 Intake Total 1100 300 400 Output Total 300 1400 900 Balance 800 -1100 -500 Lab Results - Last 24 hrs: Laboratory Results - last 24 hr 11/06/19 11/06/19 11/06/19 Range/Units 13:45 13:45 13:45 WBC 12.1 H (4.0-10.2) K/uL RBC 4.94 (3.77-5.09) M/uL Hgb 13.8 D (11.7-15.5) g/dL Hct 42.6 (34.0-46.0) % MCV 86.2 D (84.0-98.0) fL MCH 27.9 L (28.2-33.3) pg MCHC 32.4 (31.7-36.0) g/dL RDW 15.0 H (11.2-14.1) % Plt Count 355 H (150-350) K/uL Neut % (Auto) 68.4 (45.0-80.0) % Lymph % (Auto) 23.6 (10.0-50.0) % [place] % (Auto) 6.0 (2.0-14.0) % Eos % (Auto) 1.4 (0.0-5.0) % Baso % (Auto) 0.6 (0.0-2.0) % Neut # (Auto) 8.29 H (1.40-7.00) K/uL Lymph # (Auto) 2.85 (0.50-3.50) K/uL [place] # (Auto) 0.72 (0.00-1.00) K/uL Eos # (Auto) 0.17 (0.00-0.50) K/uL Baso # (Auto) 0.07 (0.00-0.20) K/uL PT 10.3 (9.5-12.0) SEC INR 1.0 APTT 31.7 (24.5-32.8) SEC D-Dimer, Quantitative 134 (0-400) ng/mL Sodium (136-145) mmol/L Potassium (3.5-5.1) mmol/L Chloride (98-107) mmol/L Carbon Dioxide (21.0-32.0) mmol/L BUN (7-18) mg/dL Creatinine (0.51-1.17) mg/dL Est Cr Clr Drug Dosing Estimated GFR (MDRD) mL/min Glucose (74-106) mg/dL Hemoglobin A1c (4.3-5.7) % Lactic Acid (0.4-2.0) mmol/L Uric Acid (2.6-7.2) mg/dL Calcium (8.5-10.1) mg/dL Magnesium (1.8-2.4) mg/dL Total Bilirubin (0.2-1.0) mg/dL AST (15-37) U/L ALT (12-78) U/L Alkaline Phosphatase (46-116) IU/L Creatine Kinase (26-308) U/L Creatine Kinase Index (0.0-2.5) % CK-MB (CK-2) (0.00-3.60) ng/mL Troponin I (0.000-0.056) ng/mL NT-Pro-B Natriuret Pep (0-125) pg/mL Total Protein (6.4-8.2) g/dL Albumin (3.4-5.0) g/dL Triglycerides (30-150) mg/dL Cholesterol (100-200) mg/dL LDL Cholesterol, Calc (0-100) mg/dL HDL Cholesterol (40-60) mg/dL Amylase (25-115) U/L Lipase (73-393) U/L TSH, Ultra Sensitive (0.358-3.740) mIU/mL HCG, Qual (NEGATIVE) 11/06/19 11/06/19 11/06/19 Range/Units 13:45 13:45 13:45 WBC (4.0-10.2) K/uL RBC (3.77-5.09) M/uL Hgb (11.7-15.5) g/dL Hct (34.0-46.0) % MCV (84.0-98.0) fL MCH (28.2-33.3) pg MCHC (31.7-36.0) g/dL RDW (11.2-14.1) % Plt Count (150-350) K/uL Neut % (Auto) (45.0-80.0) % Lymph % (Auto) (10.0-50.0) % [place] % (Auto) (2.0-14.0) % Eos % (Auto) (0.0-5.0) % Baso % (Auto) (0.0-2.0) % Neut # (Auto) (1.40-7.00) K/uL Lymph # (Auto) (0.50-3.50) K/uL [place] # (Auto) (0.00-1.00) K/uL Eos # (Auto) (0.00-0.50) K/uL Baso # (Auto) (0.00-0.20) K/uL PT (9.5-12.0) SEC INR APTT (24.5-32.8) SEC D-Dimer, Quantitative (0-400) ng/mL Sodium 136 (136-145) mmol/L Potassium 3.7 (3.5-5.1) mmol/L Chloride 100 (98-107) mmol/L Carbon Dioxide 26.2 (21.0-32.0) mmol/L BUN 9 (7-18) mg/dL Creatinine 0.84 (0.51-1.17) mg/dL Est Cr Clr Drug Dosing TNP Estimated GFR (MDRD) > 60 mL/min Glucose 143 H (74-106) mg/dL Hemoglobin A1c (4.3-5.7) % Lactic Acid 2.6 H (0.4-2.0) mmol/L Uric Acid 6.4 (2.6-7.2) mg/dL Calcium 8.7 (8.5-10.1) mg/dL Magnesium 2.0 (1.8-2.4) mg/dL Total Bilirubin 0.6 (0.2-1.0) mg/dL AST 100 H (15-37) U/L ALT 127 H (12-78) U/L Alkaline Phosphatase 113 (46-116) IU/L Creatine Kinase 104 (26-308) U/L Creatine Kinase Index 0.8 (0.0-2.5) % CK-MB (CK-2) 0.80 (0.00-3.60) ng/mL Troponin I 0.000 (0.000-0.056) ng/mL NT-Pro-B Natriuret Pep 203 H (0-125) pg/mL Total Protein 8.4 H (6.4-8.2) g/dL Albumin 3.6 (3.4-5.0) g/dL Triglycerides (30-150) mg/dL Cholesterol (100-200) mg/dL LDL Cholesterol, Calc (0-100) mg/dL HDL Cholesterol (40-60) mg/dL Amylase (25-115) U/L Lipase (73-393) U/L TSH, Ultra Sensitive 3.515 (0.358-3.740) mIU/mL HCG, Qual Negative (NEGATIVE) 11/06/19 11/07/19 11/07/19 Range/Units 20:25 06:50 06:50 WBC 8.1 (4.0-10.2) K/uL RBC 4.66 (3.77-5.09) M/uL Hgb 12.9 (11.7-15.5) g/dL Hct 40.6 (34.0-46.0) % MCV 87.1 (84.0-98.0) fL MCH 27.7 L (28.2-33.3) pg MCHC 31.8 (31.7-36.0) g/dL RDW 14.9 H (11.2-14.1) % Plt Count 273 D (150-350) K/uL Neut % (Auto) 64.6 (45.0-80.0) % Lymph % (Auto) 26.0 (10.0-50.0) % [place] % (Auto) 6.8 (2.0-14.0) % Eos % (Auto) 2.0 (0.0-5.0) % Baso % (Auto) 0.6 (0.0-2.0) % Neut # (Auto) 5.26 (1.40-7.00) K/uL Lymph # (Auto) 2.12 (0.50-3.50) K/uL [place] # (Auto) 0.55 (0.00-1.00) K/uL Eos # (Auto) 0.16 (0.00-0.50) K/uL Baso # (Auto) 0.05 (0.00-0.20) K/uL PT (9.5-12.0) SEC INR APTT (24.5-32.8) SEC D-Dimer, Quantitative (0-400) ng/mL Sodium 138 (136-145) mmol/L Potassium 3.9 (3.5-5.1) mmol/L Chloride 102 (98-107) mmol/L Carbon Dioxide 28.1 (21.0-32.0) mmol/L BUN 8 (7-18) mg/dL Creatinine 0.86 (0.51-1.17) mg/dL Est Cr Clr Drug Dosing 81.58 Estimated GFR (MDRD) > 60 mL/min Glucose 106 (74-106) mg/dL Hemoglobin A1c (4.3-5.7) % Lactic Acid (0.4-2.0) mmol/L Uric Acid (2.6-7.2) mg/dL Calcium 8.6 (8.5-10.1) mg/dL Magnesium (1.8-2.4) mg/dL Total Bilirubin 0.6 (0.2-1.0) mg/dL AST 103 H (15-37) U/L ALT 120 H (12-78) U/L Alkaline Phosphatase 101 (46-116) IU/L Creatine Kinase 89 84 (26-308) U/L Creatine Kinase Index 1.1 0.8 (0.0-2.5) % CK-MB (CK-2) 1.00 0.70 (0.00-3.60) ng/mL Troponin I 0.000 0.000 (0.000-0.056) ng/mL NT-Pro-B Natriuret Pep 191 H (0-125) pg/mL Total Protein 7.7 (6.4-8.2) g/dL Albumin 3.2 L (3.4-5.0) g/dL Triglycerides 128 (30-150) mg/dL Cholesterol 236 H (100-200) mg/dL LDL Cholesterol, Calc 173 H (0-100) mg/dL HDL Cholesterol 37 L (40-60) mg/dL Amylase 37 (25-115) U/L Lipase 123 (73-393) U/L TSH, Ultra Sensitive (0.358-3.740) mIU/mL HCG, Qual (NEGATIVE) 11/07/19 Range/Units 06:50 WBC (4.0-10.2) K/uL RBC (3.77-5.09) M/uL Hgb (11.7-15.5) g/dL Hct (34.0-46.0) % MCV (84.0-98.0) fL MCH (28.2-33.3) pg MCHC (31.7-36.0) g/dL RDW (11.2-14.1) % Plt Count (150-350) K/uL Neut % (Auto) (45.0-80.0) % Lymph % (Auto) (10.0-50.0) % [place] % (Auto) (2.0-14.0) % Eos % (Auto) (0.0-5.0) % Baso % (Auto) (0.0-2.0) % Neut # (Auto) (1.40-7.00) K/uL Lymph # (Auto) (0.50-3.50) K/uL [place] # (Auto) (0.00-1.00) K/uL Eos # (Auto) (0.00-0.50) K/uL Baso # (Auto) (0.00-0.20) K/uL PT (9.5-12.0) SEC INR APTT (24.5-32.8) SEC D-Dimer, Quantitative (0-400) ng/mL Sodium (136-145) mmol/L Potassium (3.5-5.1) mmol/L Chloride (98-107) mmol/L Carbon Dioxide (21.0-32.0) mmol/L BUN (7-18) mg/dL Creatinine (0.51-1.17) mg/dL Est Cr Clr Drug Dosing Estimated GFR (MDRD) mL/min Glucose (74-106) mg/dL Hemoglobin A1c 7.2 H (4.3-5.7) % Lactic Acid (0.4-2.0) mmol/L Uric Acid (2.6-7.2) mg/dL Calcium (8.5-10.1) mg/dL Magnesium (1.8-2.4) mg/dL Total Bilirubin (0.2-1.0) mg/dL AST (15-37) U/L ALT (12-78) U/L Alkaline Phosphatase (46-116) IU/L Creatine Kinase (26-308) U/L Creatine Kinase Index (0.0-2.5) % CK-MB (CK-2) (0.00-3.60) ng/mL Troponin I (0.000-0.056) ng/mL NT-Pro-B Natriuret Pep (0-125) pg/mL Total Protein (6.4-8.2) g/dL Albumin (3.4-5.0) g/dL Triglycerides (30-150) mg/dL Cholesterol (100-200) mg/dL LDL Cholesterol, Calc (0-100) mg/dL HDL Cholesterol (40-60) mg/dL Amylase (25-115) U/L Lipase (73-393) U/L TSH, Ultra Sensitive (0.358-3.740) mIU/mL HCG, Qual (NEGATIVE) Med Orders - Current: Current Medications Acetaminophen (Tylenol) 650 mg PO Q4H PRN PRN Reason: Pain Albuterol (Proair Hfa) 0 gm INH Q4HR PRN PRN Reason: sob Bupropion HCl (Wellbutrin Sr) 300 mg PO DAILY [facility] Fluticasone Propionate (Flonase) 0 gm NASBOTH BID PRN PRN Reason: Allergies Levothyroxine Sodium (Synthroid) 50 mcg PO ACBREAKFAST [facility] Last Admin: 11/07/19 08:24 Dose: 50 mcg Documented by: Metformin HCl (Glucophage) 500 mg PO BIDMEALS [facility] Last Admin: 11/07/19 08:23 Dose: 500 mg Documented by: Metoprolol Succinate (Toprol Xl) 50 mg PO DAILY [facility] Last Admin: 11/07/19 08:24 Dose: 50 mg Documented by: Metoprolol Succinate (Toprol Xl) 25 mg PO QPM [facility] Last Admin: 11/06/19 19:51 Dose: Not Given Documented by: Mometasone Furoate/Formoterol Fumar (Dulera 200-5 Mcg) 2 puff IH BID@ [facility] Last Admin: 11/07/19 08:24 Dose: 2 puff Documented by: Montelukast Sodium (Singulair) 10 mg PO BEDTIME [facility] Last Admin: 11/06/19 19:50 Dose: 10 mg Documented by: Omeprazole (Omeprazole) 40 mg PO DAILY [facility] Last Admin: 11/07/19 08:24 Dose: 40 mg Documented by: Polysaccharide Iron Complex (Ferrex 150) 150 mg PO DAILY [facility] Last Admin: 11/07/19 08:24 Dose: 150 mg Documented by: Sodium Chloride (Saline Flush) 10 ml FLUSH ASDIRECTED PRN PRN Reason: Keep Vein Open Last Admin: 11/06/19 16:56 Dose: 10 ml Documented by: Sodium Chloride (Saline Flush) 10 ml FLUSH Q12HR PRN PRN Reason: Keep Vein Open Temazepam (Restoril) 15 mg PO BEDTIME PRN PRN Reason: Insomnia Venlafaxine HCl (Effexor Xr) 225 mg PO BEDTIME [facility] Last Admin: 11/06/19 19:50 Dose: 225 mg Documented by: Discontinued Medications Doxepin HCl (Sinequan) 75 mg PO BEDTIME PRN PRN Reason: Insomnia Famotidine (Pepcid) 40 mg IVPUSH ONETIME ONE Stop: 11/06/19 13:28 Last Admin: 11/06/19 13:49 Dose: 40 mg Documented by: Lactated Ringer's (Ringers, Lactated) 1,000 mls @ 999 mls/hr IV .BOLUS ONE Stop: 11/06/19 15:57 Last Admin: 11/06/19 16:56 Dose: 999 mls/hr Documented by: Levofloxacin/Dextrose 500 mg/ (Premix) 100 mls @ 100 mls/hr IV ONETIME ONE Stop: 11/06/19 15:58 Last Admin: 11/06/19 15:14 Dose: 100 mls/hr Documented by: Metoprolol Succinate (Toprol Xl) 50 mg PO BID [facility] Metoprolol Tartrate (Lopressor) 2.5 mg IVPUSH ONETIME ONE Stop: 11/06/19 13:28 Last Admin: 11/06/19 13:49 Dose: 2.5 mg Documented by: Non-Formulary Medication (Bupropion Hcl [Wellbutrin Sr]) 400 mg PO DAILY [facility] Last Admin: 11/07/19 12:58 Dose: Not Given Documented by: - Exam General: Reports: Alert, Oriented, Cooperative, No Acute Distress HEENT: Reports: Pupils Equal, Pupils Reactive, EOMI, Mucous Membr. Moist/[place] Neck: Reports: Supple Lungs: Reports: Clear to Auscultation, Normal Respiratory Effort Cardiovascular: Reports: Regular Rate, Regular Rhythm, Other (no active PVC during exam) GI/Abdominal Exam: Soft, Non-Tender (Female) Exam: Deferred Rectal (Female) Exam: Deferred Extremities: Normal Inspection, Non-Tender, Normal Capillary Refill Skin: Reports: Warm, Dry Neurological: Reports: No New Focal Deficit Psy/Mental Status: Reports: Alert, Normal Affect, Normal Mood EKG INTERPRETATION EKG Date: 11/07/19 Time: 08:23 Rhythm: Other (Sinus rhythm with PVCs every 3rd-4th beat) [place]: Normal P-Wave: Present QRS: Normal ST-T: Normal QT: Prolonged Comparison: No Change
== END 2019-11-07 15:45 | disposition home or self-care (01) ==
LOC: LL.ED 13:24 → LL.MS 15:38 → UNDOADMOB 15:38 → LL.MS 16:24
PROVIDERS: ADMIT Family Medicine; ATTEND Emergency Medicine
DX: R07.2 Precordial pain (principal); R79.89 Other specified abnormal findings of blood chemistry; I49.3 Ventricular premature depolarization; R94.31 Abnormal electrocardiogram [ECG] [EKG]; J45.20 Mild intermittent asthma, uncomplicated; K80.20 Calculus of gallbladder without cholecystitis without obstruction; Z20.828 Contact with and (suspected) exposure to other viral communicable diseases; E78.5 Hyperlipidemia, unspecified; I10 Essential (primary) hypertension; E66.9 Obesity, unspecified; E78.00 Pure hypercholesterolemia, unspecified; D72.829 Elevated white blood cell count, unspecified; E03.9 Hypothyroidism, unspecified; F41.8 Other specified anxiety disorders; K21.9 Gastro-esophageal reflux disease without esophagitis; D50.9 Iron deficiency anemia, unspecified; Z79.899 Other long term (current) drug therapy; Z79.890 Hormone replacement therapy; Z68.41 Body mass index [BMI] 40.0-44.9, adult
CPT/HCPCS: 36415; 71045; 80053; 80061; 81001; 82150; 82550; 82553; 83036; 83605; 83690; 83735; 83880; 84443; 84484; 84550; 84703; 85025; 85379; 85610; 85730; 87040; 87338; 93005; A9270-GY; J1956; J3490; J7120; U0002

== ENCOUNTER 2022-03-04 16:30 | Emergency (ER) | payer MEDICAID ==
[2022-03-04] MEDS ORDERED: Sodium Chloride 0.9% 10 ML Syringe FLUSH PRN (17:08)
[2022-03-04] MEDS ORDERED: Sodium Chloride 0.9% 1,000 ML IV ONE (17:09)
[2022-03-04] MEDS ORDERED: Meclizine 25 MG Tab PO ONE (17:09)
[2022-03-04] MEDS ORDERED: Ondansetron 4 MG/2 ML SDV IVPUSH ONE (17:13)
[2022-03-04] MEDS ORDERED: Ketorolac 15 MG/ML SDV IVPUSH ONE (17:22)
[2022-03-04 17:46] LABS: HEMOGLOBIN A1C 9.1 % (4.3-5.7)
[2022-03-04 17:59] LABS: ANION GAP 12.3 meq/L (7-15)
[2022-03-04] MEDS ORDERED: Potassium Chloride 20 MEQ Tab.ER PO ONE (19:42)
[2022-03-04 19:50] VITALS: BP 120/66; PULSE 71
== END 2022-03-04 20:00 | disposition home or self-care (01) ==
LOC: LL.ED 16:30
DX: U07.1 COVID-19 (principal); E11.65 Type 2 diabetes mellitus with hyperglycemia; E87.6 Hypokalemia; E83.42 Hypomagnesemia; E78.00 Pure hypercholesterolemia, unspecified; I10 Essential (primary) hypertension; K21.9 Gastro-esophageal reflux disease without esophagitis; M19.90 Unspecified osteoarthritis, unspecified site; E03.9 Hypothyroidism, unspecified; E66.9 Obesity, unspecified; Z68.41 Body mass index [BMI] 40.0-44.9, adult; Z79.899 Other long term (current) drug therapy
CPT/HCPCS: 36415; 71045; 80053; 81001; 83036; 83735; 84484; 85025; 85379; 93005; 93010; 96361; 96365; 96375; 99285; 99285-25; A9270-GY; J1885; J2405; J3475; J7030

== ENCOUNTER 2024-09-16 06:50 | Emergency (ER) | payer MEDICAID, OTHER ==
[~2024-09-16 06:50] MED LIST: Sodium Chloride 0.9% 10 ML Syringe FLUSH PRN
[2024-09-16 07:47] LABS: BASOPHILS ABSOLUTE AUTO 0.05 K/uL (0.00-0.20); BASOPHILS PERCENT AUTO 0.5 % (0.0-2.0); EOSINOPHILS ABSOLUTE AUTO 0.16 K/uL (0.00-0.50); EOSINOPHILS PERCENT AUTO 1.7 % (0.0-5.0); IMMATURE GRAN ABSOLUTE AUTO 0.04 10^3/uL (0.00-0.04); IMMATURE GRAN PERCENT AUTO 0.4 % (0.0-0.4); LYMPHOCYTES ABSOLUTE AUTO 2.93 K/uL (0.50-3.50); LYMPHOCYTES PERCENT AUTO 31.1 % (10.0-50.0); MONOCYTES ABSOLUTE AUTO 0.42 K/uL (0.00-1.00); MONOCYTES PERCENT AUTO 4.5 % (2.0-14.0); NEUTROPHILS ABSOLUTE AUTO 5.82 K/uL (1.40-7.00); NEUTROPHILS PERCENT AUTO 61.8 % (45.0-80.0); PLATELET COUNT,PLT 288 K/uL (150-350); RED BLOOD CELL COUNT 5.36 M/uL (3.77-5.09); RED CELL DISTRIBUTION WIDTH 14.2 % (11.2-14.1); WHITE BLOOD CELL COUNT,WBC 9.4 K/uL (4.0-10.2)
[2024-09-16 08:09] LABS: ALANINE AMINOTRANSFERASE,ALT 29 U/L (12-78); ASPARTATE AMNIOTRANSFERASE,AST 24 U/L (15-37); BILIRUBIN TOTAL 0.3 mg/dL (0.2-1.0); BLOOD UREA NITROGEN,BUN 8 mg/dL (7-18); CARBON DIOXIDE,CO2 28.3 mmol/L (21.0-32.0); CHLORIDE,CL 106 mmol/L (98-107); CREATININE 0.83 mg/dL (0.51-1.17); ETHANOL BLOOD MEDICAL 0.199 g/dL (0.000-0.080); GLUCOSE RANDOM 127 mg/dL (70-99); POTASSIUM,K 3.5 mmol/L (3.5-5.1); PROTEIN TOTAL,TP 8.1 g/dL (6.4-8.2); SODIUM,NA 145 mmol/L (136-145)
[2024-09-16 08:17] LABS: ESTIMATED GFR 85 mL/min (>=60)
[2024-09-16 08:24] LABS: AMPHETAMINES SCREEN, URINE NEGATIVE (NEGATIVE); COCAINE METABOLITES,URINE NEGATIVE (NEGATIVE); EDDP,URINE SCREEN NEGATIVE (NEGATIVE); METHAMPHETAMINES SCREEN, URINE NEGATIVE (NEGATIVE)
[2024-09-16 08:25] LABS: BUPRENORPHINE SCREEN,URINE NEGATIVE (NEGATIVE); OXYCODONE SCREEN,URINE NEGATIVE (NEGATIVE); TCA SCREEN,URINE NEGATIVE (NEGATIVE); THC SCREEN,URINE 50 NG/ML NEGATIVE (NEGATIVE)
[2024-09-16 10:11] VITALS: BP 101/59; PULSE 57
== END 2024-09-16 11:24 | disposition home or self-care (01) ==
LOC: LL.ED 06:50
DX: F10.129 Alcohol abuse with intoxication, unspecified (principal); E78.00 Pure hypercholesterolemia, unspecified; I10 Essential (primary) hypertension; Z79.51 Long term (current) use of inhaled steroids; Z79.899 Other long term (current) drug therapy; Z86.16 Personal history of COVID-19; Y90.9 Presence of alcohol in blood, level not specified
CPT/HCPCS: 36415; 70450; 72125; 80053; 80305-QW; 80307; 83735; 85025; 93005; 99285; C1758; J7030